=== PATIENT | female | born 1955 | race Caucasian/White ===

== ENCOUNTER 2020-01-18 08:37 | Outpatient (AMBR) | payer MEDICAID, SELFPAY ==
--- NOTE | 2020-01-18 14:07 | PT.ODS1RPT ---
PT OP Progress/Discharge Note Date of Service: 01/18/20 Progress Note/DC Note Progress Note/Discharge Note: DC Note Patient Information Visit Reasons: RIGHT KNEE POST OP Medical Diagnosis: Z47.1; Z96.651 Treatment Dx #1: Right Knee Mobility Deficits Treatment Dx #2: Right Knee Weakness Service Continue Service or Discharge: Discharge Discharge Date: 01/18/20 Status Subjective: Pt mention that she continues to have good and bad days. Pt stated that lately she's been having more knee pain on the outside but not consistent. Pt has been able to perform all ADLs, chores, self care, and ambulation with less limitation. Pt further mention that her other medical condition can play a role in her overall pain. Pt feels comfortable being release from physical therapy with exercises to continue at home. Objective: Right Knee AROM: -5 deg to 125 deg Right Knee MMTs Quads: 4/5 Hs: 4/5 Right Hip MMTs Glute Med: 4-/5 Glute Max: 4-/5 SLS: 8 sec sit-stand: 11 reps Modified CTSIB (condition 4): 30 sec Assessment: Pt's overall knee mobility, strength, and balance has improved allowing her to perform ADLs with less limitation. Pt continues to have intermittent knee pain leading to difficulty with certain activities. At this time Pt will no longer benefit from physical therapy due to plateau towards goals. Pt was instructed on HEP last session and educated to continue exercises to maintain overall mobility. Pt performed all exercises safely, thank you for your referrals. Plan: D/C home with HEP and follow up with MD [facility] Office Procedures PT Procedures PT Date of Service: 01/18/20 Therapeutic Activity 15 minutes: Yes Therapeutic Exercise 15 minutes: Yes
== END 2020-02-15 23:59 | disposition home or self-care (01) ==
PROVIDERS: PCP Orthopaedic Surgery; Referring Provider Orthopaedic Surgery; Visit Provider Orthopaedic Surgery
DX: Z47.1 Aftercare following joint replacement surgery (principal); Z96.651 Presence of right artificial knee joint; R53.1 Weakness; M25.561 Pain in right knee; R26.2 Difficulty in walking, not elsewhere classified; I10 Essential (primary) hypertension
CPT/HCPCS: 97110; 97530

== ENCOUNTER → 2024-07-19 | Outpatient (CLI) | payer OTHER, MEDICAID, SELFPAY ==
--- NOTE | 2024-07-19 13:45 | XR_ITS ---
Examination: Screening digital mammography, bilateral Computer aided detection 3-D breast Tomosynthesis, bilateral Date and time of exam: July 19, 2024 1359 hours Compared to mammograms dating to December 03, 2010 Indication: Screening Technique: Nonmagnified MLO, CC views of the breasts to been obtained, reconstructed from 3-D Tomosynthesis images. R2 computer aided detection program utilized for evaluation of suspicious masses and/or abnormal calcifications. 3-D Tomosynthesis images obtained. Findings: Scattered areas of fibroglandular density. Benign calcifications. No interval suspicious masses Impression: BI-RADS category II: Benign Findings. Recommend 1 year follow-up mammogram.
== END | disposition home or self-care (01) ==
PROVIDERS: PCP Physician Assistant; Referring Provider Physician Assistant; Visit Provider Physician Assistant
DX: Z12.31 Encounter for screening mammogram for malignant neoplasm of breast (principal); R92.323 Mammographic fibroglandular density, bilateral breasts; R92.1 Mammographic calcification found on diagnostic imaging of breast
CPT/HCPCS: 77063; 77067

== ENCOUNTER → 2025-04-05 | Outpatient (CLI) | payer OTHER, MEDICAID, SELFPAY ==
--- NOTE | 2025-04-05 13:51 | XR_ITS ---
Examination: Abdomen sonogram, complete Date and time of exam: April 05, 2025, 1404 hours INDICATIONS: Epigastric pain beginning 2 months ago. Technique: Multiple real-time grayscale transabdominal sonographic images of the abdomen have been obtained. Findings: Gallstones Gallbladder wall 0.3 cm no edema Common bile duct 0.5 cm Pancreatic head 2.8 cm Aorta not enlarged Liver 16.5 cm fatty infiltration Mild ascites Normal hepatopetal portal venous flow Patent IVC Right kidney 9.6 cm renal cortex 1.5 cm Left kidney 10.7 cm cortex 1.5 cm Spleen 11.3 cm IMPRESSION: Cholelithiasis, negative for cholecystitis Mild hepatomegaly Mild ascites
== END | disposition home or self-care (01) ==
LOC: CDIM 13:35
PROVIDERS: PCP Physician Assistant; Referring Provider Physician Assistant; Visit Provider Physician Assistant
DX: K80.20 Calculus of gallbladder without cholecystitis without obstruction (principal); R18.8 Other ascites; R16.0 Hepatomegaly, not elsewhere classified
CPT/HCPCS: 76700

== ENCOUNTER 2025-04-12 18:25 | Inpatient (IN) | payer OTHER, MEDICAID, MEDICARE, SELFPAY ==
[2025-04-12 18:27] VITALS: BMI 34.9
[2025-04-12 18:36] VITALS: BP 130/73; PULSE 98; RESP 18; TEMP 37.1; O2SAT 96
--- NOTE | 2025-04-12 19:13 | XR_ITS ---
Examination: CT abdomen with intravenous contrast CT pelvis with intravenous contrast 2-D coronal reconstructions 2-D sagittal reconstructions Date and time of exam: April 12, 20252013 hours INDICATIONS: Right upper abdominal pain today. CTDI: vol (mGy) 10.4 DLP: (mGycm) 544 Technique: Multiple axial sections of the abdomen and pelvis have been obtained. 64 slice high-resolution scanner used. 3 mm axial sections have been obtained, post intravenous injection 60 cc [id number] 2-D sagittal, coronal reconstructions obtained. Low dose protocols were performed. One or more of the following dose reduction techniques were used; automated exposure control, adjustment of the mA and/or KV according to patient size, use of iterative reconstruction technique. Findings: No focal liver lesions or biliary tract dilatation Gallstones, distended gallbladder Mild ascites Spleen is not enlarged Liver is mildly irregular in contour No pancreatic mass Minimal nodular thickening left adrenal gland Moderate renal scar formation a small portion of the appendix is visualized and is not enlarged No bowel obstruction Colonic diverticulosis Contracted urinary bladder with urinary bladder wall thickening Absent uterus No pelvic mass Severe osteopenia with advanced degenerative disc disease L4-L5, L5-S1 Advanced bilateral hip osteoarthritis IMPRESSION: Cirrhosis, mild ascites Cholelithiasis No common bile duct or common hepatic duct stones No bowel obstruction or CT findings of appendicitis Cystitis pattern
--- NOTE | 2025-04-12 19:13 | XR_ITS ---
Examination: Abdomen sonogram, Limited Date and time of exam: April 12, 2025, 1958 hours INDICATIONS: Right upper abdominal pain radiating to the back today Technique: Real-time phillips scale transabdominal sonographic images of the upper abdomen obtained. Findings: Multiple gallstones Normal gallbladder wall 0.3 cm Common bile duct 0.4 cm no stones Pancreas obscured by bowel gas Liver 17.7 cm lobular contour Normal hepatopetal portal venous flow Patent IVC IMPRESSION: Cholelithiasis, negative for cholecystitis Cirrhosis, moderate hepatomegaly, no focal liver lesions
--- NOTE | 2025-04-12 19:16 | PD.EDABDPN ---
ED Abdominal Pain RME/HPI General Chief Complaint: Abdominal Pain Stated complaint: RUQ PAIN HX GALLSTONES Time seen by provider: 04/12/25 19:12 Arrival date/time: 04/12/25 18:25 69F with history of HTN, DM, and anxiety presents to ED with worsening RUQ pain for 1 day, as well as some N/V. Patient has known gallstones and was supposed to get an outpatient referral to Dr. Parham. Patient denies dysuria. Limitations: no limitations Related Data Home Medications ?Medication ?Instructions ?Recorded ?Confirmed alprazolam 0.25 mg tablet (Xanax) 0.25 mg PO QDAY PRN Anxiety 07/08/19 10/08/20 atenolol 50 mg tablet (Tenormin) 50 mg PO QDAY 07/08/19 10/08/20 atorvastatin 40 mg tablet 40 mg PO QDAY 07/08/19 10/08/20 cimetidine 200 mg tablet (Tagamet 200 mg PO QID PRN Acid Reflux 07/08/19 10/08/20 HB) hydrochlorothiazide 25 mg tablet 25 mg PO QDAY 07/08/19 10/08/20 metformin 500 mg tablet 1,000 mg PO QDAY 06/14/20 10/08/20 hydrocodone 7.5 mg-acetaminophen 1 tab PO Q8H PRN Pain 09/13/20 10/08/20 325 mg tablet ibuprofen 600 mg tablet 600 mg PO Q6H PRN Pain 09/13/20 10/08/20 Allergies Allergy/AdvReac Type Severity Reaction Status Date / Time lisinopril Allergy Mild Cough Verified 10/08/20 13:02 Review of Systems Review of Systems Systems Reviewed: All systems reviewed, normal except as documented Gastrointestinal Gastrointestinal: Reports as per HPI, Reports abdominal pain, Reports nausea and Reports vomiting Past Medical History Past Medical History NEUROLOGIC: Negative Neurological Disorders, Cerebrovascular Accident, Meningitis, Seizures, Migraine or Head Trauma CARDIAC: Positive Cardiac Disorders, Hypercholesterolemia, Edema and Hypertension; Negative Congestive Heart Failure or Varicose Veins RESPIRATORY: Positive Asthma and Pneumonia; Negative Chronic Obstructive Pulmonary Disease (COPD) GASTROINTESTINAL: Positive Gastrointestinal Disorders, Gastroesophageal Reflux Disease (TAKES MEDS) and Obesity; Negative Hepatitis GENITOURINARY: Negative Genitourinary Disorders, Renal Disease or Kidney Stones REPRODUCTIVE: Positive Previous Pregnancies MUSCULOSKELETAL: Positive Musculoskeletal Disorders, Degenerative Disk Disease (TAKES PAIN MEDS) and Carpal Tunnel Syndrome (right); Negative Osteoporosis ENT: Negative Cataracts, Glaucoma or Head Trauma ENDOCRINE: Positive Diabetes Mellitus Type 2 (TAKES MEDS); Negative Endocrine Disorders or Diabetes Mellitus Type 1 HEMATOLOGIC: Negative Blood Disorders, Anemia or Leukemia PSYCHO/SOCIAL: Positive Bipolar Disorder and Anxiety (TAKE MEDS) OTHER HISTORY: Positive Hospitalization ([facility] 2019), Measles and Cancer; Negative Autoimmune Disease, Shingles, Falls, Blood Transfusions, Blood Transfusion Reaction, Anesthesia Reactions, Chemotherapy, Radiation Therapy, MRSA, Chicken Pox or Mumps Family History FAMILY HISTORY: Positive Family Cardiac Disorders (DAD-HTN, [place]) and Family Cancer; Negative Family Psychiatric Problems, Family Respiratory Disorders, Family Gastrointestinal Problems, Family Surgery or Family Anesthesia Reaction Surgical History SURGICAL: Positive Ear Surgery and Hysterectomy; Negative Cardiac Surgery, Pacemaker, Endocrine Surgery, Thyroidectomy, Abdominal Surgery, Nephrectomy, Neurologic Surgery or Brain Shunt Social History SMOKING STATUS: Current every day smoker ED Exam General Limitations: Present no limitations General appearance: Present alert and in no apparent distress Head Head exam: Present atraumatic Neck Neck exam: Present normal inspection, full ROM and trachea midline Chest Chest inspection: Present normal inspection and symmetric chest wall rise Abdominal Exam Abdominal exam: Present soft Abdominal tenderness: Present RUQ and severe Neurological Exam Neurological exam: Present alert and oriented X3 Psychiatric Psychiatric exam: Present normal affect and normal mood Skin Skin exam: Present warm, dry, intact and normal color Course Quality Measures none Orders Category Date Time Status Admit to Inpatient Status Routine Admission 04/13/25 00:25 Active Patient Condition Routine Admission 04/13/25 00:25 Ordered Activity as Tolerated Routine Care 04/13/25 00:25 Ordered COVID-19 Screening Questionnaire NOW Care 04/12/25 21:[address] Screening NOW Care 04/12/25 19:13 Active Decision to Admit X1 Care 04/12/25 21:30 Completed Insert IV NOW Care 04/12/25 19:13 Active Miscellaneous Nursing Order X1 Care 04/13/25 00:26 Active NPO NOW Care 04/12/25 19:42 Active Notify provider NEEDED Care 04/13/25 00:25 Active Obtain weight X1 Care 04/13/25 00:24 Active SCD [Sequential Compression Device] QSHIFT Care 04/13/25 00:24 Active Strict Intake and Output Routine Care 04/13/25 00:25 Ordered Consult to General Surgery Stat Cons 04/12/25 21:30 Ordered Diet NPO (NOW) Diet 04/12/25 19:[address] abdomen pelvis w con Stat Exams 04/12/25 19:13 Completed US gall bladder Stat Exams 04/12/25 19:13 Completed Bilirubin,Direct Stat Lab 04/12/25 23:48 Completed CBC AM DRAW Lab 04/13/25 05:00 Ordered CBC AM DRAW Lab 04/14/25 05:00 Ordered CBC AM DRAW Lab 04/15/25 05:00 Ordered CBC Stat Lab 04/12/25 19:20 Completed CBC Stat Lab 04/12/25 23:48 Completed CMP [Comprehensive Metabolic Panel] Stat Lab 04/12/25 19:20 Completed CMP [Comprehensive Metabolic Panel] Stat Lab 04/12/25 23:48 Completed Comprehensive Metabolic Panel AM DRAW Lab 04/13/25 05:00 Ordered Comprehensive Metabolic Panel AM DRAW Lab 04/14/25 05:00 Ordered Comprehensive Metabolic Panel AM DRAW Lab 04/15/25 05:00 Ordered Lipase Stat Lab 04/12/25 19:20 Completed Magnesium AM DRAW Lab 04/13/25 05:00 Ordered PTT [Partial Thromboplastin Time] AM DRAW Lab 04/13/25 05:00 Ordered Phosphorous AM DRAW Lab 04/13/25 05:00 Ordered Prothrombin Time with INR AM DRAW Lab 04/14/25 05:00 Ordered Acetaminophen Tab [Tylenol Tab] Med 04/13/25 00:24 Active 650 mg PO Q6HR PRN HYDROmorphone INJ [Dilaudid Inj] Med 04/13/25 00:24 Active 1 mg IVP Q4H PRN HYDROmorphone INJ [Dilaudid Inj] Med 04/12/25 20:22 Discontinued 1 mg IVP X1 ONE HYDROmorphone INJ [Dilaudid Inj] Med 04/12/25 23:30 Discontinued 1 mg IVP X1 ONE Morphine* Inj Med 04/12/25 19:13 Discontinued 4 mg IV X1 ONE Ondansetron Inj [Zofran Inj] Med 04/12/25 19:13 Discontinued 4 mg IVP X1 ONE Ringers Lactated 1000 ml [Lactated Ringers] 1,000 ml Med 04/12/25 20:22 Discontinued IV 999 mls/hr Sodium Chloride 0.9% 1000 ml [Ns] 1,000 ml Med 04/12/25 23:42 Active IV 100 mls/hr Sodium Chloride 0.9% 1000 ml [Ns] 1,000 ml Med 04/12/25 19:53 Discontinued IV 999 mls/hr ceFAZolin/D5W 2 GM IV [Ancef 2gm Ivpb] Med 04/12/25 21:30 Discontinued 2 gm in 100 ml IV X1 Code Status Routine Oth 04/13/25 00:24 Ordered Oxygen Delivery PRN RT 04/13/25 00:24 Active Vital Signs Vital signs: Vital Signs Temperature 98.7 F 04/12/25 18:36 Pulse Rate 98 04/12/25 18:36 Respiratory Rate 18 04/12/25 18:36 Blood Pressure 130/73 04/12/25 18:36 Pulse Oximetry (%) 96 04/12/25 18:36 Oxygen Delivery Method Room Air 04/12/25 18:36 O2 at 96% on RA and WNLs Abdominal Pain MDM MDM Narrative MDM Narrative:: 69F with history of HTN, DM, and anxiety presents to ED with worsening RUQ pain for 1 day, as well as some N/V. Patient has known gallstones and was supposed to get an outpatient referral to Dr. Parham. Patient denies dysuria. Physical exam reveals very tender RUQ area. Patient is afebrile, alert, but appears to be in pain. Leukocytosis of 17k. CMP unremarkable except for mildly low Na. Lipase normal. US gallstones. CT gallstones. Spoke to Dr. Parham, gen surgeon, who will consult. He recommends Ancef. Spoke to IM Resident who reports to Dr. Gomez, who will admit. Patient data External records reviewed:: [facility] previous records Clinical information provided by:: patient Social determinants that could affect healthcare access:: mental health Patient has the following chronic illnesses:: HTN, DM, and anxiety How is presenting disease/condition affected by chronic disease/condition?: exacerbated by Evaluation data The following diagnostics were reviewed and interpreted by me:: lab results and radiology exam(s) Lab and/or radiology exams considered but not ordered:: ordered Interpretation Summary: above Medications / Prescriptions Medications or Prescriptions considered but not ordered:: ordered Medication administrations:: Medication Administration History Acetaminophen (Acetaminophen 325 Mg Tablet) 650 mg PO Q6HR PRN PRN Reason: PAIN (1-3) OR FEVER > 100.4 Stop: 05/13/25 00:23 Hydromorphone HCl (Hydromorphone Inj 2 Mg/Ml Vial) 1 mg IVP Q4H PRN PRN Reason: Severe Pain (7-10) Stop: 04/18/25 00:23 Sodium Chloride (Ns) 1,000 mls @ 100 mls/hr IV .Q10H ONE Stop: 04/13/25 09:41 Last Admin: 04/12/25 23:48 Dose: 100 mls/hr Documented By: CHRISTIE Discontinued Medications Hydromorphone HCl (Hydromorphone Inj 2 Mg/Ml Vial) 1 mg IVP X1 ONE Stop: 04/12/25 20:23 Last Admin: 04/12/25 21:00 Dose: 1 mg Documented By: CHRISTIE Hydromorphone HCl (Hydromorphone Inj 2 Mg/Ml Vial) 1 mg IVP X1 ONE Stop: 04/12/25 23:31 Last Admin: 04/12/25 23:48 Dose: 1 mg Documented By: CHRISTIE Sodium Chloride (Ns) 1,000 mls @ 999 mls/hr IV .Q1H1M ONE Stop: 04/12/25 20:53 Last Infusion: 04/12/25 22:12 Dose: Infused Documented By: Admin: 04/12/25 20:56 Dose: 999 mls/hr Documented By: CHRISTIE Lactated Ringer's (Lactated Ringers) 1,000 mls @ 999 mls/hr IV .Q1H1M ONE Stop: 04/12/25 21:22 Last Infusion: 04/12/25 22:11 Dose: Infused Documented By: Admin: 04/12/25 21:00 Dose: 999 mls/hr Documented By: CHRISTIE Cefazolin Sodium (Ancef 2gm Ivpb) 2 gm in 100 mls @ 200 mls/hr IV X1 ONE Stop: 04/12/25 21:59 Last Infusion: 04/12/25 22:22 Dose: Infused Documented By: Admin: 04/12/25 21:49 Dose: 200 mls/hr Documented By: CHRISTIE Morphine Sulfate (Morphine Sulf Inj 4 Mg/Ml Vial) 4 mg IV X1 ONE Stop: 04/12/25 19:14 Last Admin: 04/12/25 19:47 Dose: 4 mg Documented By: CHRISTIE Ondansetron HCl (Ondansetron Inj 2 Mg/Ml Inj 2 Ml) 4 mg IVP X1 ONE; Protocol Stop: 04/12/25 19:14 Last Admin: 04/12/25 19:47 Dose: 4 mg Documented By: SM above Consultations Consultation(s) initiated? (list below): Yes Diagnosis Differential diagnosis abdominal pain: abdominal pain, acute appendicitis, calculus of kidney, constipation, diverticulitis, gastroenteritis, pancreatitis and small bowel obstruction Most likely diagnosis given after review of the tests above:: gallstones Admission Indicated Admission indicated?: indicated Admission Request Was there a request for admission?: Yes Admission Attestation Admission request attestation: Discussed case with [Dr. Gomez] from Hospitalist service regarding admission. Discussed patients ED course, exam findings, labs, and radiology results. The Hospitalist [agrees] to accept the patient for admission. Disposition Plan Disposition Plan: Admit Discharge Plan Plan Patient Disposition: Admit Acute Care w/in Hospital Prescriptions/Referrals Prescriptions/Med Rec: No Action metformin 500 mg Tablet 1,000 mg PO QDAY hydrocodone-acetaminophen 7.5-325 mg Tablet 1 tab PO Q8H PRN (Reason: Pain) ibuprofen 600 mg Tablet 600 mg PO Q6H PRN (Reason: Pain) atorvastatin 40 mg Tablet 40 mg PO QDAY alprazolam [Xanax] 0.25 mg Tablet 0.25 mg PO QDAY PRN (Reason: Anxiety) cimetidine [Tagamet HB] 200 mg Tablet 200 mg PO QID PRN (Reason: Acid Reflux) hydrochlorothiazide 25 mg Tablet 25 mg PO QDAY atenolol [Tenormin] 50 mg Tablet 50 mg PO QDAY Referrals: Rosa Ku PA-C [Primary Care Provider, Family Practice] - In 1 week Problem List Clinical Impression: Gallstones Patient/Caregiver Discharge Instructions Print Language: Israeli Stand Alone Forms: Rosalba Award Info., Patient Portal Info Letter
[2025-04-12 19:26] LABS: Basophils # (Auto) 0.1 Thou/mm3 (0.0-0.2); Basophils % (Auto) 0 % (0-2.5); Eosinophils # (Auto) 0.0 Thou/mm3 (0.0-0.5); Eosinophils % (Auto) 0 % (0-10); Hematocrit 36.0 % (36.0-46.0); Hemoglobin 13.0 g/dL (12.0-16.0); Immature Granulocytes Auto 0.10 Thou/mm3 (0.00-0.00); Lymphocytes # (Auto) 0.7 Thou/mm3 (1.0-4.8); Lymphocytes % (Auto) 4 % (10-50); Mean Corpuscular HGB Conc 36.1 g/dl (31.0-37.0); Mean Corpuscular Hemoglobin 31.0 pg (25.0-35.0); Mean Corpuscular Volume 86 fL (80-100); Monocytes # (Auto) 0.8 Thou/mm3 (0.0-0.8); Monocytes % (Auto) 5 % (0-12); Neutrophils # (Auto) 15.9 Thou/mm3 (1.8-7.7); Neutrophils % (Auto) 90 % (37-80); Nucleated Red Blood Cell # 0.00 Thou/mm3 (0.00-0.00); Nucleated Red Blood Cell % 0 /100 WBC (0); Platelet Count 265 Thou/mm3 (140-440); RDW Standard Deviation 39.0 fL (36.4-46.3); Red Blood Count 4.19 Miln/mm3 (4.00-5.20); White Blood Count 17.6 Thou/mm3 (3.6-11.0)
[2025-04-12] MEDS: ONDANSETRON INJ 2 MG/ML INJ 2 ML 4 MG IVP (19:47)
[2025-04-12] MEDS: MORPHINE SULF INJ 4 MG/ML VIAL IV (19:47)
[2025-04-12 19:50] LABS: Alanine Aminotransferase 8 U/L (10-49); Albumin, Serum 4.9 gm/dL (3.4-4.8); Albumin/Globulin Ratio 2.7 (1.2-2.2); Alkaline Phosphatase 141 U/L (46-116); Anion Gap 11 (7-16); Aspartate Amino Transferase 15 U/L (0-34); BUN/Creatinine Ratio 13 Ratio (12-20); Bilirubin,Total 0.7 mg/dL (0.3-1.2); Blood Urea Nitrogen 12 mg/dL (9-23); Calcium 10.0 mg/dL (8.3-10.6); Calcium (Corrected) 10.0 mg/dL (8.5-10.1); Carbon Dioxide 25.4 mMol/L (20.0-31.0); Chloride 96 mMol/L (98-107); Creatinine (Component) 0.9 mg/dL (0.6-1.3); Estimated Creatinine Clearance 56.5 mL/min (>60); Globulin 1.8 gm/dL (2.3-3.5); Glucose 150 mg/dL (74-106); Lipase 23 U/L (12-53); Osmolality,Calculated 267 (275-295); Potassium 3.5 mMol/L (3.4-5.1); Sodium 132 mMol/L (136-145); Total Protein 6.7 gm/dL (5.7-8.2); eGFR > 60 See Note
[2025-04-12 20:45] VITALS: BP 91/44; PULSE 86; RESP 19; TEMP 37.1; O2SAT 96
[2025-04-12] MEDS: SODIUM CHLORIDE 0.9% 1000 ML 1,000 ML 999 ML IV (20:56)
[2025-04-12] MEDS: HYDROmorphone INJ 2 MG/ML VIAL 1 MG IVP ×2 (21:00→23:48)
[2025-04-12] MEDS: RINGERS LACTATED 1000 ML 1,000 ML 999 ML IV (21:00)
[2025-04-12] MEDS: ceFAZolin/D5W 2 GM IV 2 GM/100 ML BAG IV (21:49)
[2025-04-12] MEDS: SODIUM CHLORIDE 0.9% 1000 ML 1,000 ML 100 ML IV (23:48)
[2025-04-12 23:54] LABS: Basophils # (Auto) 0.0 Thou/mm3 (0.0-0.2); Basophils % (Auto) 0 % (0-2.5); Eosinophils # (Auto) 0.0 Thou/mm3 (0.0-0.5); Eosinophils % (Auto) 0 % (0-10); Hematocrit 30.4 % (36.0-46.0); Hemoglobin 11.0 g/dL (12.0-16.0); Immature Granulocytes Auto 0.06 Thou/mm3 (0.00-0.00); Lymphocytes # (Auto) 0.7 Thou/mm3 (1.0-4.8); Lymphocytes % (Auto) 5 % (10-50); Mean Corpuscular HGB Conc 36.2 g/dl (31.0-37.0); Mean Corpuscular Hemoglobin 31.3 pg (25.0-35.0); Mean Corpuscular Volume 87 fL (80-100); Monocytes # (Auto) 0.7 Thou/mm3 (0.0-0.8); Monocytes % (Auto) 4 % (0-12); Neutrophils # (Auto) 14.7 Thou/mm3 (1.8-7.7); Neutrophils % (Auto) 91 % (37-80); Nucleated Red Blood Cell # 0.00 Thou/mm3 (0.00-0.00); Nucleated Red Blood Cell % 0 /100 WBC (0); Platelet Count 240 Thou/mm3 (140-440); RDW Standard Deviation 39.5 fL (36.4-46.3); Red Blood Count 3.51 Miln/mm3 (4.00-5.20); White Blood Count 16.2 Thou/mm3 (3.6-11.0)
[2025-04-13] VITALS (17 sets, daily range): BP systolic 91–141; BP diastolic 42–88; PULSE 82–110; RESP 16–95; TEMP 35.9–36.7; O2SAT 92–98; BMI 35.6
[2025-04-13 00:27] LABS: Alanine Aminotransferase < 7 U/L (10-49); Albumin, Serum 4.2 gm/dL (3.4-4.8); Albumin/Globulin Ratio 2.5 (1.2-2.2); Alkaline Phosphatase 112 U/L (46-116); Anion Gap 9 (7-16); Aspartate Amino Transferase 13 U/L (0-34); BUN/Creatinine Ratio 13 Ratio (12-20); Bilirubin,Direct 0.2 mg/dL (0.0-0.3); Bilirubin,Total 0.4 mg/dL (0.3-1.2); Blood Urea Nitrogen 10 mg/dL (9-23); Calcium 8.7 mg/dL (8.3-10.6); Calcium (Corrected) 8.7 mg/dL (8.5-10.1); Carbon Dioxide 25.3 mMol/L (20.0-31.0); Chloride 101 mMol/L (98-107); Creatinine (Component) 0.8 mg/dL (0.6-1.3); Estimated Creatinine Clearance 63.5 mL/min (>60); Globulin 1.7 gm/dL (2.3-3.5); Glucose 151 mg/dL (74-106); Osmolality,Calculated 272 (275-295); Potassium 3.2 mMol/L (3.4-5.1); Sodium 135 mMol/L (136-145); Total Protein 5.9 gm/dL (5.7-8.2); eGFR > 60 See Note
--- NOTE | 2025-04-13 00:29 | PD.RESHP ---
Documentation for date of: 04/13/25 [facility] History of Present Illness History of present illness: 69-year-old female with a history of hypertension, type II diabetes mellitus, and anxiety presents to the emergency department with a 1-day history of worsening RUQ abdominal pain, associated with nausea and vomiting (2 episodes). The pain is described as constant, dull, and localized to the RUQ, and has progressively worsened over the past day. The patient reports a known history of gallstones and was waiting on an outpatient referral to Dr. Parham for follow-up, but has not yet been seen. She denies any dysuria, fever, or chills. The patient?s symptoms do not appear to be related to any recent change in diet or medication. There is no history of jaundice, and she denies any recent weight loss or dark/foul-smelling urine. ED course: Initial vitals include T98.7, BP 130/73, HR 98, RR 18, O2 sat 96% room air. Notable labs include WBC 17.6, hemoglobin 13, sodium 132 with repeat 135, potassium 3.2. Past medical history: As stated above. Past surgical history: Carpal tunnel and shoulder surgeries, no abdominal surgeries. Allergies: Lisinopril (cough). Family history: Noncontributory. Social history: No alcohol use, smokes 1.5 packs a day for 30 years, no illicit drug use. Patient admitted for cholelithiasis pending cholecystectomy. Review of Systems Review of Systems Narrative Review of Systems: All systems reviewed negative unless stated otherwise above. Exam Vital Signs Temp Pulse Resp BP Pulse Ox O2 Del Method 98.7 F 86 19 91/44 L 96 Room Air 04/12/25 20:45 04/12/25 20:45 04/12/25 20:45 04/12/25 20:45 04/12/25 20:45 04/12/25 20:45 Narrative Exam General: AOx3, severe distress from pain HEENT: NC/AT, mucous membranes moist, bilateral sclera anicteric Cardiovascular: regular rate and rhythm, S1/S2 present, no murmurs appreciated Pulmonary: clear to auscultation bilaterally, no rales/rhonchi/wheezes Abdominal: Tense, severe tenderness with minimal palpation, distended, involuntary guarding, normal bowel sounds present Musculoskeletal: normal ROM, no peripheral edema Skin: warm and dry, intact, no rashes, Neuro: CN II-XII intact, no focal deficits Results: Labs 04/13/25 05:04 04/13/25 05:04 Labs: Short CBC 04/12/25 04/12/25 Range/Units 19:20 23:48 WBC 17.6 H 16.2 H (3.6-11.0) Thou/mm3 Hgb 13.0 11.0 L D (12.0-16.0) g/dL Hct 36.0 30.4 L (36.0-46.0) % Plt Count 265 240 (140-440) Thou/mm3 BMP 04/12/25 19:20 Sodium 132 L Potassium 3.5 Chloride 96 L Carbon Dioxide 25.4 BUN 12 Creatinine 0.9 Glucose 150 H Calcium 10.0 Liver Function 04/12/25 Range/Units 19:20 Total Bilirubin 0.7 (0.3-1.2) mg/dL AST 15 (0-34) U/L ALT 8 L (10-49) U/L Alkaline Phosphatase 141 H (46-116) U/L Albumin 4.9 H (3.4-4.8) gm/dL Quality Measures Quality Measures VTE prophylaxis Advance care planning discussed with:: patient Medications Home Medications and Allergies Home Medications ?Medication ?Instructions ?Recorded ?Confirmed ?Type atenolol 50 mg tablet (Tenormin) 50 mg PO QDAY 07/08/19 04/13/25 History atorvastatin 40 mg tablet 40 mg PO QDAY 07/08/19 04/13/25 History hydrochlorothiazide 25 mg tablet 25 mg PO QDAY 07/08/19 04/13/25 History metformin 500 mg tablet 1,000 mg PO QDAY 06/14/20 04/13/25 History hydrocodone 7.5 mg-acetaminophen 1 tab PO Q8H PRN Pain 09/13/20 04/13/25 History 325 mg tablet famotidine 20 mg tablet 20 mg PO QDAY 04/13/25 04/13/25 History gabapentin 300 mg capsule 300 mg PO TID Nerve pain in my 04/13/25 04/13/25 History hands losartan 50 mg tablet 50 mg PO QDAY 04/13/25 04/13/25 History omeprazole 20 mg capsule,delayed 20 mg PO QDAY 04/13/25 04/13/25 History release Allergies Allergy/AdvReac Type Severity Reaction Status Date / Time lisinopril Allergy Mild Cough Verified 10/08/20 13:02 Visit Medications Acetaminophen (Acetaminophen 325 Mg Tablet) 650 mg PO Q6HR PRN PRN Reason: PAIN (1-3) OR FEVER > 100.4 Stop: 05/13/25 00:23 Hydromorphone HCl (Hydromorphone Inj 2 Mg/Ml Vial) 1 mg IVP Q4H PRN PRN Reason: Severe Pain (7-10) Stop: 04/18/25 00:23 Sodium Chloride (Ns) 1,000 mls @ 100 mls/hr IV .Q10H ONE Stop: 04/13/25 09:41 Last Admin: 04/12/25 23:48 Dose: 100 mls/hr Discontinued Medications Hydromorphone HCl (Hydromorphone Inj 2 Mg/Ml Vial) 1 mg IVP X1 ONE Stop: 04/12/25 20:23 Last Admin: 04/12/25 21:00 Dose: 1 mg Hydromorphone HCl (Hydromorphone Inj 2 Mg/Ml Vial) 1 mg IVP X1 ONE Stop: 04/12/25 23:31 Last Admin: 04/12/25 23:48 Dose: 1 mg Sodium Chloride (Ns) 1,000 mls @ 999 mls/hr IV .Q1H1M ONE Stop: 04/12/25 20:53 Last Infusion: 04/12/25 22:12 Dose: Infused Lactated Ringer's (Lactated Ringers) 1,000 mls @ 999 mls/hr IV .Q1H1M ONE Stop: 04/12/25 21:22 Last Infusion: 04/12/25 22:11 Dose: Infused Cefazolin Sodium (Ancef 2gm Ivpb) 2 gm in 100 mls @ 200 mls/hr IV X1 ONE Stop: 04/12/25 21:59 Last Infusion: 04/12/25 22:22 Dose: Infused Morphine Sulfate (Morphine Sulf Inj 4 Mg/Ml Vial) 4 mg IV X1 ONE Stop: 04/12/25 19:14 Last Admin: 04/12/25 19:47 Dose: 4 mg Ondansetron HCl (Ondansetron Inj 2 Mg/Ml Inj 2 Ml) 4 mg IVP X1 ONE; Protocol Stop: 04/12/25 19:14 Last Admin: 04/12/25 19:47 Dose: 4 mg Assessment & Plan Plan 69-year-old female with a history of hypertension, type II diabetes mellitus, and anxiety presents to the emergency department with a 1-day history of worsening RUQ abdominal pain, associated with nausea and vomiting. Patient admitted for cholelithiasis pending cholecystectomy. #Cholelithiasis #Right upper quadrant pain #Intractable abdominal pain #Liver Cirrhosis 1-day history of worsening RUQ abdominal pain, associated with nausea and vomiting CT Abdo pelvis showed cholelithiasis, liver mildly irregular in contour, no common bile duct or common hepatic duct stone, no bowel obstruction Gallbladder ultrasound showed cholelithiasis, negative for cholecystitis WBC 17.6 Afebrile Plan ? General Surgery consulted, Dr. Parham, to evaluate in the morning ? N.p.o. ? Analgesia ? Maintenance fluid ? No indication for antibiotics at this stage #Hypokalemia Likely in the setting of GI loss Plan ? Replete potassium ? Follow level in a.m. #Type 2 diabetes mellitus Last A1c unknown Takes metformin 1 g daily Plan ? Insulin sliding scale ordered ? Hypoglycemia protocol in place ? A1c level ordered Health Maintenance: Diet: N.p.o. GI prophylaxis: Protonix 40 mg daily DVT prophylaxis: SCDs given surgery in the morning Antibiotics: None CODE STATUS: Full Disposition: MedSur Case discussed with my attending Dr. Gomez, and senior resident, Dr. Jaquelin Odom MD PGY-1 Attending Provider Attestation/Addendum After examination of the patient and review of the clinical data I feel that this patient needs admission to the hospital for further treatment/evaluation. Plan of care discussed with patient and is in agreement. I Renate Gomez MD, attest that I was physically present for valles portions of evaluation, and examined patient, labs and imagings and plan of care were discussed with IM residents team, and I agree with the findings and plans documented above.
[2025-04-13] MEDS: POTASSIUM CHL 10 mEq IVPB 10 MEQ/100 ML BAG 75 MEQ IV ×4 (02:28→06:15)
[2025-04-13] MEDS: HYDROmorphone INJ 2 MG/ML VIAL 1 MG IVP ×3 (03:15→10:10)
--- NOTE | 2025-04-13 03:22 | PC.NURSE ---
Accessed pt's chart to give Dilaudid 1 mg. Main RN on lunch.
--- NOTE | 2025-04-13 05:20 | PC.NURSE ---
MD Parham called and get update for the pts.
[2025-04-13 05:26] LABS: Basophils # (Auto) 0.1 Thou/mm3 (0.0-0.2); Basophils % (Auto) 0 % (0-2.5); Eosinophils # (Auto) 0.0 Thou/mm3 (0.0-0.5); Eosinophils % (Auto) 0 % (0-10); Hematocrit 31.3 % (36.0-46.0); Hemoglobin 10.9 g/dL (12.0-16.0); Immature Granulocytes Auto 0.09 Thou/mm3 (0.00-0.00); Lymphocytes # (Auto) 0.9 Thou/mm3 (1.0-4.8); Lymphocytes % (Auto) 5 % (10-50); Mean Corpuscular HGB Conc 34.8 g/dl (31.0-37.0); Mean Corpuscular Hemoglobin 30.4 pg (25.0-35.0); Mean Corpuscular Volume 87 fL (80-100); Monocytes # (Auto) 0.9 Thou/mm3 (0.0-0.8); Monocytes % (Auto) 5 % (0-12); Neutrophils # (Auto) 16.5 Thou/mm3 (1.8-7.7); Neutrophils % (Auto) 89 % (37-80); Nucleated Red Blood Cell # 0.00 Thou/mm3 (0.00-0.00); Nucleated Red Blood Cell % 0 /100 WBC (0); Platelet Count 244 Thou/mm3 (140-440); RDW Standard Deviation 40.0 fL (36.4-46.3); Red Blood Count 3.59 Miln/mm3 (4.00-5.20); White Blood Count 18.5 Thou/mm3 (3.6-11.0)
[2025-04-13 05:39] LABS: Partial Thromboplastin Time 28.7 Seconds (22.0-36.0)
[2025-04-13 05:45] LABS: Glucose Estimated Average 137 mg/dL (80-131); Hemoglobin A1C 6.4 % Hgb (4.8-6.0)
[2025-04-13 06:03] LABS: Alanine Aminotransferase < 7 U/L (10-49); Albumin, Serum 4.4 gm/dL (3.4-4.8); Albumin/Globulin Ratio 2.6 (1.2-2.2); Alkaline Phosphatase 110 U/L (46-116); Anion Gap 7 (7-16); Aspartate Amino Transferase 12 U/L (0-34); BUN/Creatinine Ratio 14 Ratio (12-20); Bilirubin,Total 0.5 mg/dL (0.3-1.2); Blood Urea Nitrogen 11 mg/dL (9-23); Calcium 8.9 mg/dL (8.3-10.6); Calcium (Corrected) 8.9 mg/dL (8.5-10.1); Carbon Dioxide 25.9 mMol/L (20.0-31.0); Chloride 103 mMol/L (98-107); Creatinine (Component) 0.8 mg/dL (0.6-1.3); Estimated Creatinine Clearance 64.1 mL/min (>60); Globulin 1.7 gm/dL (2.3-3.5); Glucose 131 mg/dL (74-106); Magnesium 1.5 mg/dL (1.6-2.6); Osmolality,Calculated 273 (275-295); Phosphorous 3.6 mg/dL (2.4-5.1); Potassium 4.0 mMol/L (3.4-5.1); Sodium 136 mMol/L (136-145); Total Protein 6.1 gm/dL (5.7-8.2); eGFR > 60 See Note
--- NOTE | 2025-04-13 06:36 | PC.NURSE ---
MD Hammer made aware that pt is still in too much pain, per MD will check on pts chart.
--- NOTE | 2025-04-13 07:07 | PD.SURCONS ---
HPI Consult details Consult date: 04/13/25 Reason for consultation narrative: ` The patient is admitted with a diagnosis of cholelithiasis History of present illness: History of present illness revealed that the patient has been experiencing some pain over the right side of the abdomen under the rib cage for a few months. She was seen by Rosa at [facility] and was ordered to have an ultrasound 1 week ago. Patient was found to have gallstones and she was waiting for the referral to mt for surgery. But starting yesterday she had uncontrolled severe pain over the right flank and came to the emergency room and was found to have significant tenderness. She was admitted to the hospital and a CT scan showed some fluid in the liver and gallstones. The ultrasound confirmed the gallstones. Patient's pain is very severe accompanied by exacerbation. She cannot even move and is planning to lie down on the left side and she cannot lie down on the right side. She has had some back pain in the past. Her other medical problem consist of diabetes and hypertension past surgery consisted of knee replacement and carpal tunnel. Patient is also taking gabapentin for her nerve pain in her hands and legs Past Medical History Past Medical History NEUROLOGIC: Negative Neurological Disorders, Cerebrovascular Accident, Meningitis, Seizures, Migraine or Head Trauma CARDIAC: Positive Cardiac Disorders, Hypercholesterolemia, Edema and Hypertension; Negative Congestive Heart Failure or Varicose Veins RESPIRATORY: Positive Asthma and Pneumonia; Negative Chronic Obstructive Pulmonary Disease (COPD) GASTROINTESTINAL: Positive Gastrointestinal Disorders, Gastroesophageal Reflux Disease and Obesity; Negative Hepatitis GENITOURINARY: Negative Genitourinary Disorders, Renal Disease or Kidney Stones REPRODUCTIVE: Positive Previous Pregnancies MUSCULOSKELETAL: Positive Musculoskeletal Disorders, Degenerative Disk Disease and Carpal Tunnel Syndrome; Negative Osteoporosis ENT: Negative Cataracts, Glaucoma or Head Trauma ENDOCRINE: Positive Diabetes Mellitus Type 2; Negative Endocrine Disorders or Diabetes Mellitus Type 1 HEMATOLOGIC: Negative Blood Disorders, Anemia, Leukemia or Sickle Cell Disease PSYCHO/SOCIAL: Positive Bipolar Disorder and Anxiety OTHER HISTORY: Positive Hospitalization, Measles and Cancer; Negative Autoimmune Disease, Shingles, Falls, Blood Transfusions, Blood Transfusion Reaction, Anesthesia Reactions, Chemotherapy, Radiation Therapy, MRSA, Chicken Pox or Mumps Family History FAMILY HISTORY: Positive Family Cardiac Disorders and Family Cancer; Negative Family Psychiatric Problems, Family Respiratory Disorders, Family Gastrointestinal Problems, Family Surgery or Family Anesthesia Reaction Surgical History SURGICAL: Positive Ear Surgery and Hysterectomy; Negative Cardiac Surgery, Pacemaker, Endocrine Surgery, Thyroidectomy, Abdominal Surgery, Nephrectomy, Neurologic Surgery or Brain Shunt Social History SMOKING STATUS: Current every day smoker Meds Home Medications and Allergies Home Medications ?Medication ?Instructions ?Recorded ?Confirmed ?Type atenolol 50 mg tablet (Tenormin) 50 mg PO QDAY 07/08/19 04/13/25 History atorvastatin 40 mg tablet 40 mg PO QDAY 07/08/19 04/13/25 History hydrochlorothiazide 25 mg tablet 25 mg PO QDAY 07/08/19 04/13/25 History metformin 500 mg tablet 1,000 mg PO QDAY 06/14/20 04/13/25 History hydrocodone 7.5 mg-acetaminophen 1 tab PO Q8H PRN Pain 09/13/20 04/13/25 History 325 mg tablet famotidine 20 mg tablet 20 mg PO QDAY 04/13/25 04/13/25 History gabapentin 300 mg capsule 300 mg PO TID Nerve pain in my 04/13/25 04/13/25 History hands losartan 50 mg tablet 50 mg PO QDAY 04/13/25 04/13/25 History omeprazole 20 mg capsule,delayed 20 mg PO QDAY 04/13/25 04/13/25 History release Allergies Allergy/AdvReac Type Severity Reaction Status Date / Time lisinopril Allergy Mild Cough Verified 10/08/20 13:02 Exam Vital Signs Temp Pulse Resp BP Pulse Ox O2 Del Method 96.9 F 87 18 126/65 96 Room Air 04/13/25 04:00 04/13/25 04:00 04/13/25 04:00 04/13/25 04:00 04/13/25 04:00 04/13/25 04:00 Narrative Exam Physical examination revealed a an obese female who is 5 feet tall weighing 182 pounds with a BMI of 35.6. Her vital signs are normal Constitutional Constitutional: severe distress Routine Respiratory Exam Comments: Normal Routine Cardiovascular Exam Comments: Sinus rhythm Routine Abdominal Exam Comments: Examination of the abdomen showed severe tenderness over the right flank and the right side of the abdomen. The left side of the abdomen is soft and bowel sounds are hypoactive. Patient's pain and tenderness is on proportion to the findings on the CT scan Routine Rectal Exam Comments: Deferred Routine Exam Comments: Deferred Routine Extremities Exam Comments: Within normal limits Routine Back/Spine/Pelvis Exam Comments: Patient has a tenderness over the back and over the right flank likely radicular pain Results Results: Laboratory Laboratory Narrative: Laboratory workup shows leukocytosis around 18,000. Liver enzymes are normal Results: Imaging Imaging narrative: CT scan of the abdomen showed some fluid around the liver and possible cirrhosis but I do not see any contraction of the liver. Gallbladder is seen with 2 stones but there are no Christopher cholecystic fluid collection or distention of the gallbladder. The ultrasound of the abdomen showed cholelithiasis without cholecystitis Assessment & Plan Additional Assessment Additional comments: Impression: Questionable radicular pain Cholelithiasis Obesity Hypertension Diabetes Plan Plan: Patient's pain is not typical of acute cholecystitis she is having constant pain requiring [id number] Dilaudid. It seems to be not relieving her pain. At this time I have not made a diagnosis as to what is causing this pain and the gallstones were just an incidental finding and may be an innocent bystander. I can always arrange for a laparoscopic cholecystectomy which needs to be done but this will not relieve pain I would wait for further diagnostic workup. Thank you
--- NOTE | 2025-04-13 07:28 | PD.RESPRO ---
Documentation for date of: 04/13/25 Subjective Subjective Interval history: patient seen and examined at bedside daughter and son present. concerned for GB infection pt is pending UA to help rule out UTI and possible renal stone, evne though ct without renal stone present. she has known cholelithiasis but imaging on this admission without signs of acute cholecystitis continue with pain management Exam Vital Signs Temp Pulse Resp BP Pulse Ox O2 Del Method 96.9 F 87 18 126/65 96 Room Air 04/13/25 04:00 04/13/25 04:00 04/13/25 04:00 04/13/25 04:00 04/13/25 04:00 04/13/25 04:00 Narrative Exam General: AOx3, severe distress from pain, standing at bedside bent over, holding on to bed railing. HEENT: NC/AT, mucous membranes moist, bilateral sclera anicteric Cardiovascular: regular rate and rhythm, S1/S2 present, no murmurs appreciated Pulmonary: clear to auscultation bilaterally, no rales/rhonchi/wheezes Abdominal: Abdomen is firm, no rebound no guardings, some epigastric tenderness to palpation, no guarding upon deep palpation of the RUQ, normal bowel sounds. Musculoskeletal: normal ROM, no peripheral edema Skin: warm and dry, intact, no rashes, Neuro: CN II-XII intact, no focal deficits Objective Labs 04/13/25 05:04 04/13/25 05:04 Labs: Laboratory Results - last 24 hr 04/12/25 04/12/25 04/13/25 19:20 23:48 05:04 WBC 17.6 H 16.2 H 18.5 H RBC 4.19 3.51 L 3.59 L Hgb 13.0 11.0 L D 10.9 L Hct 36.0 30.4 L 31.3 L MCV 86 87 87 MCH 31.0 31.3 30.4 MCHC 36.1 36.2 34.8 RDW Std Deviation 39.0 39.5 40.0 Plt Count 265 240 244 Neut % (Auto) 90 H 91 H 89 H Lymph % (Auto) 4 L 5 L 5 L Charlton % (Auto) 5 4 5 Eos % (Auto) 0 0 0 Baso % (Auto) 0 0 0 Neut # (Auto) 15.9 H 14.7 H 16.5 H Lymph # (Auto) 0.7 L 0.7 L 0.9 L Charlton # (Auto) 0.8 0.7 0.9 H Eos # (Auto) 0.0 0.0 0.0 Baso # (Auto) 0.1 0.0 0.1 Immature Gran # (Auto) 0.10 H 0.06 H 0.09 H Absolute Nucleated RBC 0.00 0.00 0.00 Immature Gran % 1 H 0 1 H Nucleated RBC % 0 0 0 APTT 28.7 Sodium 132 L 135 L 136 Potassium 3.5 3.2 L 4.0 D Chloride 96 L 101 103 Carbon Dioxide 25.4 25.3 25.9 Anion Gap 11 9 7 BUN 12 10 11 Creatinine 0.9 0.8 0.8 Estim Creat Clear Calc 56.5 L 63.5 64.1 eGFR > 60 > 60 > 60 BUN/Creatinine Ratio 13 13 14 Glucose 150 H [address] Glu mg/dL 137 H Hemoglobin A1c 6.4 H Calculated Osmolality 267 L 272 L 273 L Calcium 10.0 8.7 8.9 Corrected Calcium 10.0 8.7 8.9 Phosphorus 3.6 Magnesium 1.5 L Total Bilirubin 0.7 0.4 0.5 Direct Bilirubin 0.2 AST 15 13 12 ALT 8 L < 7 L < 7 L Alkaline Phosphatase 141 H 112 D 110 Total Protein 6.7 5.9 6.1 Albumin 4.9 H 4.2 D 4.4 Globulin 1.8 L 1.7 L 1.7 L Albumin/Globulin Ratio 2.7 H 2.5 H 2.6 H Lipase 23 Quality Measures Quality Measures VTE prophylaxis Advance care planning discussed with:: patient and child Assessment & Plan Assessment Current Active Medications: Generic Name Dose Route Start Last Admin Trade Name Freq PRN Reason Stop Dose Admin Acetaminophen 650 mg 04/13/25 00:24 Acetaminophen 325 Mg Tablet PO 05/13/25 00:23 Q6HR PRN PAIN (1-3) OR FEVER > 100.4 Dextrose 25 ml 04/13/25 01:47 Dextrose 50%-Water Inj 50 Ml Syringe IV 05/13/25 01:46 Q15MIN PRN BG 50-70 responsive npo pt Dextrose 50 ml 04/13/25 01:47 Dextrose 50%-Water Inj 50 Ml Syringe IV 05/13/25 01:46 Q15MIN PRN BG <50 OR BG <70 & pt unresponsive Glucagon 1 mg 04/13/25 01:47 Glucagon Inj 1 Mg Vial IM Q15MIN PRN BG <70, and no IV access Hydromorphone HCl 1 mg 04/13/25 00:24 04/13/25 03:15 Hydromorphone Inj 2 Mg/Ml Vial IVP 04/18/25 00:23 1 mg Q4H PRN Administration Severe Pain (7-10) Sodium Chloride 1,000 mls @ 100 mls/hr 04/12/25 23:42 04/12/25 23:48 Ns IV 04/13/25 09:41 100 mls/hr .Q10H ONE Administration Insulin Human Lispro 0 unit 04/13/25 07:30 Insulin Lispro (Admelog) 1 Unit/0.01 Ml Unit SC 05/13/25 07:29 ACHS NAKUL Protocol Ondansetron HCl 4 mg 04/13/25 01:44 Ondansetron Inj 2 Mg/Ml Inj 2 Ml IVP 05/13/25 01:43 Q6HR PRN NAUSEA OR VOMITING Protocol Pantoprazole Sodium 40 mg 04/13/25 09:00 Pantoprazole Inj 40 Mg Vial IVP 05/13/25 08:59 QDAY NAKUL Plan 69-year-old female with a history of hypertension, type II diabetes mellitus, and anxiety presents to the emergency department with a acute on subacute post prandial ruq pain associated with nausea and vomiting found to have gallstones on US outpatient, likely billiary colic. pt admitted for infectious work up, pain managment and possible cholecystectomy. #Cholelithiasis #Biliary Colic #Right upper quadrant pain vs R flank pain #Leukocytosis Acute on subchronic presentation of RUQ post prandial pain, patient reports having taken NSAIDS regularly for chronic back pain CT Abdo pelvis showed cholelithiasis, liver mildly irregular in contour, no common bile duct or common hepatic duct stone, no bowel obstruction Gallbladder ultrasound showed cholelithiasis, negative for cholecystitis WBC 18 Afebrile lipase wnl, no CVA tenderness, Plan ? General Surgery consulted, Dr. Parham, appreciate recs ? N.p.o. ? Analgesia, APAP 650 PO scheduled and Morphine 2mg IV q4hr prn ? Maintenance fluid ? No indication for antibiotics at this stage #GERD #Delayed gastric emptying pt reports lots of gerd symptoms, she states that she last took ozempic in december and then was switched to mounjaro in january. she did not tolerate the medications well and d/c at end of january, she had lots of GI distress from those medications also givn hx of NSAID use for back pain, she may have PUD. Hgb 10.9 from 13 on admission home meds: Famotidine 20 mg po qd and omeprazole 20 mg po qd. Plan - Viscous Lidocaine 20 - Protonix 40 qd - maalox prn #Acute Normocytic Anemia hgb on admission 13, and on prior labs has been wnl, during current admission hgb 10.9, pt states that she had some blood tinged emesis but no erich blood by mouth she does have cirrhosis, possibly 2/2 NAFLD Plan - Daily CBC - transfuse if <7 - consider GI consult for possible EGD if continues to downtrend. #Hypokalemia- resolved Likely in the setting of GI loss Plan - daily cmp #Type 2 diabetes mellitus Last A1c 6.4 Takes metformin 1 g daily Plan ? Insulin sliding scale ordered ? Hypoglycemia protocol in place ? A1c level 6.4 #HTN - hold losartan 50mg po qd, pt is normo to slightly hypotensive at present #Chronic LBP - takes norco at home 1 tab q8hr, see pain regimen above for cholelithiasis #Peripheral Neuropathy - gabapentin 300 mg TID #HLD atorvastatin 40 mg qd Health Maintenance: Diet: N.p.o. GI prophylaxis: Protonix 40 mg daily DVT prophylaxis: SCDs given concern for bleed and possible surgery today Antibiotics: None CODE STATUS: [facility] Provider Attestation/Addendum I have seen and examined the patient. I was physically present for the valles portions of the services provided including history, physical exam, diagnosis, treatment plans and orders. I agree with assessment and plan of care as documented by residents. Patient seen and examined at bedside this morning. She is a 69 years old female with past medical history of hypertension, type 2 diabetes mellitus, anxiety who presented to the ED with complaint of worsening right sided abdominal pain associated with nausea and vomiting. She was admitted overnight for management of cholelithiasis, intractable abdominal pain. At bedside, patient continues to have right-sided pain, appears to be on distress, requiring [id number] IV analgesics. Abdomen/pelvis CT showed cirrhosis, cholelithiasis but no finding of cholecystitis. Gallbladder ultrasound also showed cholelithiasis without cholecystitis. Noted to have WBC of 18.5 but does not have any fever. Continues to be nauseous. Lab results are mostly stable including liver panel, only has magnesium of 1.5, repleted accordingly, A1c 6.4. Discussed with general surgery, obtained UA but was negative for any blood or finding of infection, patient is planned for laparoscopic cholecystectomy, due to worsening pain. Even though this this note was carefully revised there may still be minor errors in reuse technician due to voice recognition software. Smooth Sullivan MD
[2025-04-13] MEDS: ACETAMINOPHEN 325 MG TABLET 650 MG PO ×2 (09:34→22:37)
[2025-04-13] MEDS: Magnesium Sulfate 4 GM Ivpb 4 GM/50 ML BAG IV (09:35)
[2025-04-13] MEDS: ONDANSETRON INJ 2 MG/ML INJ 2 ML 4 MG IVP ×2 (09:35→18:36)
--- NOTE | 2025-04-13 11:36 | PD.SURPROG ---
Documentation for date of: 04/13/25 Subjective Subjective Brief History: History of present illness revealed that the patient has been experiencing some pain over the right side of the abdomen under the rib cage for a few months. She was seen by Rosa at [facility] and was ordered to have an ultrasound 1 week ago. Patient was found to have gallstones and she was waiting for the referral to me for surgery. But starting yesterday she had uncontrolled severe pain over the right flank and came to the emergency room and was found to have significant tenderness. She was admitted to the hospital and a CT scan showed some fluid in the liver and gallstones. The ultrasound confirmed the gallstones. Patient's pain is very severe accompanied by exacerbation. She cannot even move and is planning to lie down on the left side and she cannot lie down on the right side. She has had some back pain in the past. Her other medical problem consist of diabetes and hypertension past surgery consisted of knee replacement and carpal tunnel. Patient is also taking gabapentin for her nerve pain in her hands and legs Narrative: The patient continues to have a pain over the right flank as well as in the right lower quadrant of the abdomen. She is on narcotics [id number] Exam Vital Signs Temp Pulse Resp BP Pulse Ox O2 Del Method 98.1 F 96 20 100/53 L 93 L Room Air 04/13/25 08:00 04/13/25 08:00 04/13/25 08:00 04/13/25 08:00 04/13/25 08:00 04/13/25 08:00 Vital signs are normal other than tachycardia due to pain Routine Abdominal Exam Comments: Abdominal examination is unchanged Assessment & Plan Assessment Additional comments: Impression: I have ordered a urinalysis to make sure that there is no blood in the urine to suspect renal stone. Because of the continuing pain I will arrange for laparoscopic cholecystectomy Plan Plan: Patient was told that laparoscopic cholecystectomy will be arranged. But even after surgery she may continue to have a pain if it is not due to the gallbladder. She is agreeable the procedure for laparoscopic cholecystectomy was explained to her including the potential complications and need for open cholecystectomy.
[2025-04-13 11:37] LABS: Collection Type, Urine Catheter
[2025-04-13 11:47] LABS: Bilirubin,Urine Negative (Negative); Blood,Urine Negative (Negative); Clarity,Urine Clear (Clear/Hazy); Color,Urine Lt-Yellow (Lt Yel-Yel); Glucose, Urine Negative (Negative); Ketones,Urine Negative (Negative); Leukocyte Esterase,Urine Negative (Negative); Nitrite,Urine Negative (Negative); PH,Urine 6.5 (5.0-7.0); Protein,Urine Negative (Neg - Trace); RBC,Urine 3 /hpf (0-3); Specific Gravity,Urine 1.019 (1.001-1.035); Squamous Epithelial Cell,Urine 3 /hpf (0-5); Urobilinogen,Urine Negative mg/dL (0.0-1.0); WBC,Urine 3 /hpf (0-5)
--- NOTE | 2025-04-13 14:40 | PC.SS ---
69YO Female; Reason for visit: CHOLELITHIASIS Initial assessment completed at bedside with patient and her daughter Joyce Jenkins [phone]. Role and purpose of today's contact was explained. Joyce provided information on patient's behalf due to patient appearing in pain. Patient resides with her son. Patient's primary medical surrogate decisionmaker is her daughter Joyce Jenkins [phone]. Patient is independent with ADL completion and independent with ambulation as well. PHARMACY: [facility]. PCP: Rosa Ku, last appt. was 04/06/25. Patient requesting to return home when medically clear. NEXT OF KIN: Daughter Joyce Jenkins [phone]. DISCHARGE PLAN: Home, family to provide transport.
--- NOTE | 2025-04-13 16:12 | PD.SUROPNT ---
Date of Procedure 04/13/25 Pre Op Diagnosis Symptomatic cholelithiasis Post Op Diagnosis Same, inflammatory exudate right flank possibly perforated appendicitis Procedure Diagnostic laparoscopy and removal of omental inflammatory nodules and irrigation of the peritoneal cavity followed by laparoscopic cholecystectomy Findings Patient is found to have inflamed purulent material over the right side presenting as an exudate. This is probably the reason for her pain over the right flank the lower abdomen. Exploration of the gallbladder showed no acute inflammation Procedure Description For the patient was brought to the operating room endotracheal anesthesia was given. Patient received 2 g of Ancef. Timeout is performed. Abdomen was prepped with ChloraPrep solution and draped in a sterile manner before the timeout. Then I made a small incision below the umbilicus and the fascia was cleaned. Veress needle was inserted and pneumoperitoneum was created up to 15 mmHg. Then introduced a 12 mm trocar and passed the scope and the abdominal cavity and I found out that omentum was covering the gallbladder. Initially I thought that the patient had acute cholecystitis. I placed a second trocar in the epigastric region and removal of the fat showed that the gallbladder was not inflamed but it was distended. Then I realized the patient had some exudate over the right gutter and around the liver just like it was seen on the preoperative CT scan. This appeared to be purulent in nature. This was aspirated and I started looking for the source. I felt that it could be from the appendicitis or diverticulitis on the right colon which might have ruptured. I placed another trocar in the right lower quadrant of the abdomen on the fourth trocar between the umbilicus and the xiphoid process. Using laparoscope I explored the pelvis as much as I could. I was lifting up the cecum but appendix could not be seen. Thorough irrigation was carried out and looked for any inflammatory mass. The omentum however had some nodules which look like an inflammation or some tumor which might have ruptured. I could not clearly call this as acute appendicitis because I could never see the appendix or a perforated 1. This area was irrigated and the omental nodules were removed for pathophysiology examination. Then after irrigation of the wound I felt that there is no contraindication to proceed with laparoscopic cholecystectomy. This was proceeded in the usual manner lifting the gallbladder which was tense. This was aspirated and then dissection was carried out by peeling the omentum and in the process it ruptured and the stone came out. The gallbladder was controlled with Endoloop to close the perforation and further irrigation carried out till we went to the neck. I was able to identify the cystic duct which was clipped and divided patient also had a cystic artery which was similarly dealt with. The gallbladder was removed from the liver bed and delivered with 1 stone inside at the neck. Then I removed 2 or 3 stones from the abdominal cavity which is escaped during the perforation of the gallbladder. Then extensive irrigation was carried out and checked for the bleeding point. Trocars were pulled out and the fascia was closed with interrupted 0 Ethibond on the skin by 4-0 nylon sutures and 4-0 Monocryl. Patient tolerated the procedure well. Anesthesia GETA Pathology / specimen Other (Inflamed omental nodules, #2 gallbladder with stones) IVF Infused 1,200 Estimated Blood Loss 100 Condition Stable Disposition PACU Surgeon Vance Ball MD Surgical Staff Operation Date: 04/13/25 13:00 Case Staff Anesthesiologist: Gilbert Yadav RNarea intelligence technician: Pramod Huang
--- NOTE | 2025-04-13 16:14 | SUR.PHASEI ---
1614: pt received from OR via [facility]. received report from Dr. Yadav and GRIS Benson. oral airway in place. no s/s of pain or discomfort. no s/s resp. distress or discomfort. dressing to abdomen x6 clean, dry and intact.
--- NOTE | 2025-04-13 16:53 | SUR.PHASEI ---
Addendum entered by Leslie Belle RN 04/13/25 17:23: change time to 1710 instead of 165 Original Note: 165: pt transfer back in the room viagurney. pt alert and oriented. no s/s of resp. distress or discomfort. denies nay pain or discomfort. dressing to abdomen clean, dry and intact.
--- NOTE | 2025-04-13 16:57 | SUR.PHASEI ---
1657: report given at this time
[2025-04-13] MEDS: metroNIDAZOLE/NS 500 MG IVPB 500 MG/100 ML BAG 200 MG IV (17:13)
[2025-04-13] MEDS: SODIUM CHLORIDE 0.9% 1000 ML 1,000 ML 100 ML IV (17:14)
[2025-04-13] MEDS: MORPHINE SULF INJ 4 MG/ML VIAL IVP (20:24)
[2025-04-13] MEDS: GABAPENTIN 300 MG CAPSULE PO (22:37)
[2025-04-13] MEDS: ceFAZolin/D5W 2 GM IV 2 GM/100 ML BAG IV (22:38)
[2025-04-14] VITALS (7 sets, daily range): BP systolic 93–127; BP diastolic 59–76; PULSE 76–100; RESP 16–91; TEMP 36.1–36.7; O2SAT 93–96
[2025-04-14] MEDS: metroNIDAZOLE/NS 500 MG IVPB 500 MG/100 ML BAG 200 MG IV ×5 (00:01→23:31)
[2025-04-14] MEDS: MORPHINE SULF INJ 4 MG/ML VIAL IVP ×3 (00:43→08:44)
[2025-04-14] MEDS: SODIUM CHLORIDE 0.9% 1000 ML 1,000 ML 100 ML IV ×2 (04:39→17:14)
[2025-04-14] MEDS: ceFAZolin/D5W 2 GM IV 2 GM/100 ML BAG IV ×3 (05:36→21:27)
[2025-04-14] MEDS: GABAPENTIN 300 MG CAPSULE PO ×3 (05:37→21:27)
[2025-04-14] MEDS: ACETAMINOPHEN 325 MG TABLET 650 MG PO ×2 (05:37→17:14)
[2025-04-14 05:54] LABS: Basophils # (Auto) 0.0 Thou/mm3 (0.0-0.2); Basophils % (Auto) 0 % (0-2.5); Eosinophils # (Auto) 0.0 Thou/mm3 (0.0-0.5); Eosinophils % (Auto) 0 % (0-10); Hematocrit 29.0 % (36.0-46.0); Hemoglobin 9.9 g/dL (12.0-16.0); Immature Granulocytes Auto 0.17 Thou/mm3 (0.00-0.00); Lymphocytes # (Auto) 0.5 Thou/mm3 (1.0-4.8); Lymphocytes % (Auto) 3 % (10-50); Mean Corpuscular HGB Conc 34.1 g/dl (31.0-37.0); Mean Corpuscular Hemoglobin 30.8 pg (25.0-35.0); Mean Corpuscular Volume 90 fL (80-100); Monocytes # (Auto) 0.8 Thou/mm3 (0.0-0.8); Monocytes % (Auto) 5 % (0-12); Neutrophils # (Auto) 16.0 Thou/mm3 (1.8-7.7); Neutrophils % (Auto) 91 % (37-80); Nucleated Red Blood Cell # 0.00 Thou/mm3 (0.00-0.00); Nucleated Red Blood Cell % 0 /100 WBC (0); Platelet Count 216 Thou/mm3 (140-440); RDW Standard Deviation 43.6 fL (36.4-46.3); Red Blood Count 3.21 Miln/mm3 (4.00-5.20); White Blood Count 17.5 Thou/mm3 (3.6-11.0)
[2025-04-14 06:08] LABS: INR 1.2 (0.9-1.3); Prothrombin Time 12.4 Seconds (9.0-12.2)
[2025-04-14 06:31] LABS: Alanine Aminotransferase 8 U/L (10-49); Albumin, Serum 4.0 gm/dL (3.4-4.8); Albumin/Globulin Ratio 2.2 (1.2-2.2); Alkaline Phosphatase 103 U/L (46-116); Anion Gap 7 (7-16); Aspartate Amino Transferase 23 U/L (0-34); BUN/Creatinine Ratio 18 Ratio (12-20); Bilirubin,Total 0.3 mg/dL (0.3-1.2); Blood Urea Nitrogen 11 mg/dL (9-23); Calcium 8.9 mg/dL (8.3-10.6); Calcium (Corrected) 8.9 mg/dL (8.5-10.1); Carbon Dioxide 26.1 mMol/L (20.0-31.0); Chloride 107 mMol/L (98-107); Creatinine (Component) 0.6 mg/dL (0.6-1.3); Estimated Creatinine Clearance 85.5 mL/min (>60); Globulin 1.8 gm/dL (2.3-3.5); Glucose 126 mg/dL (74-106); Magnesium 2.0 mg/dL (1.6-2.6); Osmolality,Calculated 280 (275-295); Phosphorous 2.3 mg/dL (2.4-5.1); Potassium 4.0 mMol/L (3.4-5.1); Sodium 140 mMol/L (136-145); Total Protein 5.8 gm/dL (5.7-8.2); eGFR > 60 See Note
[2025-04-14] MEDS: NAPH,KPH MBDB 1 PACKET (1.5 GM) PO (08:44)
--- NOTE | 2025-04-14 09:52 | PD.SURPROG ---
Documentation for date of: 04/14/25 Subjective Subjective Brief History: History of present illness revealed that the patient has been experiencing some pain over the right side of the abdomen under the rib cage for a few months. She was seen by Rosa at [facility] and was ordered to have an ultrasound 1 week ago. Patient was found to have gallstones and she was waiting for the referral to me for surgery. But starting yesterday she had uncontrolled severe pain over the right flank and came to the emergency room and was found to have significant tenderness. She was admitted to the hospital and a CT scan showed some fluid in the liver and gallstones. The ultrasound confirmed the gallstones. Patient's pain is very severe accompanied by exacerbation. She cannot even move and is planning to lie down on the left side and she cannot lie down on the right side. She has had some back pain in the past. Her other medical problem consist of diabetes and hypertension past surgery consisted of knee replacement and carpal tunnel. Patient is also taking gabapentin for her nerve pain in her hands and legs Narrative: The patient is feeling better and is able to lay down on her back. The intensity of the pain is improved and she is not using as much pain medication as yesterday Exam Vital Signs Temp Pulse Resp BP Pulse Ox O2 Del Method O2 Flow Rate 97.4 F 82 18 93/59 L 93 L Nasal Cannula 4 04/14/25 08:00 04/14/25 08:00 04/14/25 08:00 04/14/25 08:00 04/14/25 08:00 04/14/25 04:00 04/13/25 18:11 Vital signs are normal Routine Abdominal Exam Comments: Abdominal examination showed some bleeding at the umbilical site site dressing Results Results: Laboratory Laboratory Narrative: Laboratory results that show leukocytosis of around 17,000. Liver enzymes are normal Assessment & Plan Assessment Additional comments: Impression: Stable postoperative. After laparoscopic cholecystectomy and drainage of infection in the great gutter Plan Plan: We shall continue IV antibiotics and wait for the report of the biopsy PROCEDURES: Procedures Diagnostic laparoscopy and removal of omental inflammatory nodules and irrigation of the peritoneal cavity followed by laparoscopic cholecystectomy
--- NOTE | 2025-04-14 10:01 | PD.RESPRO ---
Documentation for date of: 04/14/25 Subjective Subjective Interval history: patient seen and examined at bedside post op day 1 from lap mike and abdominal washout and omental nodules sent for pathology pt reports quality of r sided pain is changed, and slightly improved plan to trial norco for pain and minimize iv continues on iv abx Exam Vital Signs Temp Pulse Resp BP Pulse Ox O2 Del Method O2 Flow Rate 97.4 F 82 18 93/59 L 93 L Nasal Cannula 4 04/14/25 08:00 04/14/25 08:00 04/14/25 08:00 04/14/25 08:00 04/14/25 08:00 04/14/25 04:00 04/13/25 18:11 Narrative Exam General: AOx3, moderate distress from pain,laying in bed sitting at 45 angle, c/o r sided pain HEENT: NC/AT, mucous membranes moist, bilateral sclera anicteric Cardiovascular: regular rate and rhythm, S1/S2 present, no murmurs appreciated Pulmonary: clear to auscultation bilaterally, no rales/rhonchi/wheezes Abdominal: Abdomen is firm, no rebound no guardings, laproscopic incisions covered with dressing, mild tenderness on abdomen more notable on the R side. Musculoskeletal: normal ROM, no peripheral edema Skin: warm and dry, intact, no rashes, Neuro: CN II-XII intact, no focal deficits Objective Labs 04/14/25 05:32 04/14/25 05:32 Labs: Laboratory Results - last 24 hr 04/13/25 04/14/25 11:29 05:32 WBC 17.5 H RBC 3.21 L Hgb 9.9 L Hct 29.0 L MCV 90 MCH 30.8 MCHC 34.1 RDW Std Deviation 43.6 Plt Count 216 Neut % (Auto) 91 H Lymph % (Auto) 3 L [place] % (Auto) 5 Eos % (Auto) 0 Baso % (Auto) 0 Neut # (Auto) 16.0 H Lymph # (Auto) 0.5 L [place] # (Auto) 0.8 Eos # (Auto) 0.0 Baso # (Auto) 0.0 Immature Gran # (Auto) 0.17 H Absolute Nucleated RBC 0.00 Immature Gran % 1 H Nucleated RBC % 0 PT 12.4 H INR 1.2 Sodium 140 Potassium 4.0 Chloride 107 Carbon Dioxide 26.1 Anion Gap 7 BUN 11 Creatinine 0.6 Estim Creat Clear Calc 85.5 eGFR > 60 BUN/Creatinine Ratio 18 Glucose 126 H Calculated Osmolality 280 Calcium 8.9 Corrected Calcium 8.9 Phosphorus 2.3 L Magnesium 2.0 Total Bilirubin 0.3 AST 23 ALT 8 L Alkaline Phosphatase 103 Total Protein 5.8 Albumin 4.0 Globulin 1.8 L Albumin/Globulin Ratio 2.2 Ur Collection Type Catheter Urine Color Lt-Yellow Urine Clarity Clear Urine pH 6.5 Ur Specific [place] 1.019 Urine Protein Negative Urine Glucose (UA) Negative Urine Ketones Negative Urine Blood Negative Urine Nitrite Negative Urine Bilirubin Negative Urine Urobilinogen (Auto) Negative Ur Leukocyte Esterase Negative Urine RBC 3 Urine WBC 3 Ur Squamous Epith Cells 3 Urine Bacteria None Quality Measures Quality Measures VTE prophylaxis Advance care planning discussed with:: patient and child Assessment & Plan Assessment Current Active Medications: Generic Name Dose Route Start Last Admin Trade Name Freq PRN Reason Stop Dose Admin Acetaminophen 650 mg 04/13/25 08:15 04/14/25 05:37 Acetaminophen 325 Mg Tablet PO 05/13/25 08:14 650 mg Q6HR NAKUL Administration Al Hydrox/Mg Hydrox/Simethicone 30 ml 04/13/25 10:09 Mg Hyd/Al Hyd/Hanny (Maalox Reg) Susp 30 Ml Udc PO 05/13/25 10:08 QID PRN UPSET STOMACH/INDIGESTION Dextrose 25 ml 04/13/25 01:47 Dextrose 50%-Water Inj 50 Ml Syringe IV 05/13/25 01:46 Q15MIN PRN BG 50-70 responsive npo pt Dextrose 50 ml 04/13/25 01:47 Dextrose 50%-Water Inj 50 Ml Syringe IV 05/13/25 01:46 Q15MIN PRN BG <50 OR BG <70 & pt unresponsive Gabapentin 300 mg 04/13/25 14:00 04/14/25 05:37 Gabapentin 300 Mg Capsule PO 05/13/25 13:59 300 mg TID NAKUL Administration Glucagon 1 mg 04/13/25 01:47 Glucagon Inj 1 Mg Vial IM Q15MIN PRN BG <70, and no IV access Cefazolin Sodium 2 gm in 100 mls @ 100 mls/hr 04/13/25 16:53 04/14/25 05:36 Ancef 2gm Ivpb IV 04/20/25 16:52 100 mls/hr Q8HR NAKLU Administration Metronidazole 500 mg in 100 mls @ 200 mls/hr 04/13/25 16:53 04/14/25 06:37 Flagyl 500 Mg Iv IV 04/20/25 16:52 200 mls/hr Q6HR NAKUL Administration Sodium Chloride 1,000 mls @ 100 mls/hr 04/13/25 16:53 04/14/25 04:39 Ns IV 05/13/25 16:52 100 mls/hr .Q10H NAKUL Administration Insulin Human Lispro 0 unit 04/13/25 07:30 04/14/25 06:36 Insulin Lispro (Admelog) 1 Unit/0.01 Ml Unit SC 05/13/25 07:29 Not Given ACHS NAKUL Protocol Metoprolol Tartrate 1 mg 04/13/25 15:44 Metoprolol Tartrate Inj 1 Mg/Ml Vial 5 Ml IVP Q5MIN PRN TACHYCARDIA Midazolam HCl 1 mg 04/13/25 15:43 Midazolam Inj 1 Mg/Ml Vial 2 Ml IVP 04/14/25 15:42 Q5MIN PRN ANXIETY Morphine Sulfate 4 mg 04/13/25 16:53 04/14/25 08:44 Morphine Sulf Inj 4 Mg/Ml Vial IVP 04/18/25 16:52 4 mg Q4HR PRN Administration PAIN SCALE 4-10(Mod-Sev Ondansetron HCl 4 mg 04/13/25 01:44 04/13/25 18:36 Ondansetron Inj 2 Mg/Ml Inj 2 Ml IVP 05/13/25 01:43 4 mg Q6HR PRN Administration NAUSEA OR VOMITING Protocol Pantoprazole Sodium 40 mg 04/13/25 09:00 04/14/25 08:44 Pantoprazole Inj 40 Mg Vial IVP 05/13/25 08:59 40 mg QDAY NAKUL Administration Plan 69-year-old female with a history of hypertension, type II diabetes mellitus, and anxiety presents to the emergency department with a acute on subacute post prandial ruq pain associated with nausea and vomiting found to have gallstones on US outpatient, likely billiary colic. pt admitted for infectious work up, found to have fluid surrounding liver, on lap mike, found to have puralent liquid around liver, abdomen was washed out, and gb removed, continues on iv abx. #S/p laproscopic cholecystectomy POD 1 #Cholelithiasis #Biliary Colic #Pus in the R abdomen around liver, seen on lap mike #Leukocytosis - persists Acute on subchronic presentation of RUQ post prandial pain, patient reports having taken NSAIDS regularly for chronic back pain CT Abdo pelvis showed cholelithiasis, liver mildly irregular in contour, no common bile duct or common hepatic duct stone, no bowel obstruction Gallbladder ultrasound showed cholelithiasis, negative for cholecystitis WBC 18 Afebrile lipase wnl, no CVA tenderness, 04/13, pt went to surgery for removal of gb with stones, and was found to have puralent material in the RUQ, no ruptured appendix was visualized. Plan ? General Surgery consulted, Dr. Parham, appreciate recs , post lap mike and wash out of pus in the ruq ? clear liquid, advance as tolerated ? Analgesia, [place] 10-325 BID (home med is 7.5) and Morphine 2mg IV q4hr prn ? Maintenance fluid, NS 100 cc/hr ? Cefazolin 2 gm q8hr (04/12- - Metronidazole 500 q6hr (04/13- Foul Smelling Urine c/f UTI post op from lap choelesystectomy, pt reports foul smelling urine, c/f uti, is on abx for intrabdominal infection/cholecystitis, initial UA was [place], she denies LUTS. Plan - pending collection of repeat UA. #GERD #Delayed gastric emptying pt reports lots of gerd symptoms, she states that she last took ozempic in december and then was switched to mounjaro in january. she did not tolerate the medications well and d/c at end of january, she had lots of GI distress from those medications also givn hx of NSAID use for back pain, she may have PUD. Hgb 10.9 from 13 on admission home meds: Famotidine 20 mg po qd and omeprazole 20 mg po qd. #Acute Normocytic Anemia hgb on admission 13, and on prior labs has been wnl, during current admission hgb 10.9, pt states that she had some blood tinged emesis but no erich blood by mouth she does have cirrhosis, possibly 2/2 NAFLD Hgb 13-->10.9-->9.9 Plan - Daily CBC - transfuse if <7 - consider GI consult for possible EGD if continues to downtrend. #Hypokalemia- resolved Likely in the setting of GI loss Plan - daily cmp #Type 2 diabetes mellitus Last A1c 6.4 Takes metformin 1 g daily Plan ? Insulin sliding scale ordered ? Hypoglycemia protocol in place ? A1c level 6.4 #HTN - hold losartan 50mg po qd, pt is normo to slightly hypotensive at present #Chronic LBP - takes norco at home 1 tab q8hr, see pain regimen above for cholelithiasis #Peripheral Neuropathy - gabapentin 300 mg TID #HLD atorvastatin 40 mg qd #Hypophosphatemia Plan Replete as indicated Health Maintenance: Diet: clear liquid diet. GI prophylaxis: Protonix 40 mg daily DVT prophylaxis: SCDs given concern for bleed and possible surgery today Antibiotics: None CODE STATUS: Full Disposition: MedSurg Plan discussed with my attending Dr. Laurie Luevano MD PGY1 Attending Provider Attestation/Addendum I have seen and examined the patient. I was physically present for the valles portions of the services provided including history, physical exam, diagnosis, treatment plans and orders. I agree with assessment and plan of care as documented by residents. Patient seen and examined at bedside this morning. Appears to be in pain but states that her pain is better compared to yesterday. Underwent laparoscopy and removal of omental inflammatory nodules with elevation of the peritoneal cavity followed by laparoscopic cholecystectomy. She was found to have inflamed purulent material over the right side presenting as exudate but the source of purulent material was not very clear. We will continue with broad-spectrum IV antibiotics, await culture results and monitor closely. Vital signs are stable. WBC count is slowly downtrending. Chemistry panel remain stable. Patient and family at bedside updated about patient's condition and further management plan, answered all their questions to satisfaction, patient and family show agreement with plan. Even though this this note was carefully revised there may still be minor errors in medical transcription editor due to voice recognition software. Smooth Sullivan MD
[2025-04-14 14:44] LABS: Bacteria,Urine Rare; Bilirubin,Urine Negative (Negative); Blood,Urine Negative (Negative); Clarity,Urine Clear (Clear/Hazy); Collection Type, Urine Clean Catch; Color,Urine Yellow (Lt Yel-Yel); Culture Indicated,Urine Not Indicated; Glucose, Urine Negative (Negative); Ketones,Urine Negative (Negative); Leukocyte Esterase,Urine Negative (Negative); Nitrite,Urine Negative (Negative); PH,Urine 6.0 (5.0-7.0); Protein,Urine Negative (Neg - Trace); RBC,Urine 5 /hpf (0-3); Specific Gravity,Urine 1.021 (1.001-1.035); Squamous Epithelial Cell,Urine 3 /hpf (0-5); Urobilinogen,Urine Negative mg/dL (0.0-1.0); WBC,Urine 3 /hpf (0-5)
[2025-04-14] MEDS: MORPHINE SULF INJ 4 MG/ML VIAL 2 MG IVP ×2 (15:13→23:20)
[2025-04-15] VITALS (8 sets, daily range): BP systolic 136–183; BP diastolic 82–95; PULSE 85–96; RESP 18–94; TEMP 36.1–36.7; O2SAT 92–94
[2025-04-15] MEDS: MG HYD/AL HYD/SIME (Maalox Reg) SUSP 30 ML UDC PO (01:40)
[2025-04-15] MEDS: MORPHINE SULF INJ 4 MG/ML VIAL 2 MG IVP ×4 (03:56→20:58)
[2025-04-15] MEDS: metroNIDAZOLE/NS 500 MG IVPB 500 MG/100 ML BAG 200 MG IV ×3 (05:13→17:52)
[2025-04-15] MEDS: SODIUM CHLORIDE 0.9% 1000 ML 1,000 ML 100 ML IV ×2 (05:14→20:53)
[2025-04-15] MEDS: GABAPENTIN 300 MG CAPSULE PO ×3 (05:16→20:59)
[2025-04-15] MEDS: ceFAZolin/D5W 2 GM IV 2 GM/100 ML BAG IV ×3 (06:15→20:59)
[2025-04-15 06:36] LABS: Basophils # (Auto) 0.0 Thou/mm3 (0.0-0.2); Basophils % (Auto) 0 % (0-2.5); Eosinophils # (Auto) 0.0 Thou/mm3 (0.0-0.5); Eosinophils % (Auto) 0 % (0-10); Hematocrit 29.0 % (36.0-46.0); Hemoglobin 9.9 g/dL (12.0-16.0); Immature Granulocytes Auto 0.23 Thou/mm3 (0.00-0.00); Lymphocytes # (Auto) 0.7 Thou/mm3 (1.0-4.8); Lymphocytes % (Auto) 5 % (10-50); Mean Corpuscular HGB Conc 34.1 g/dl (31.0-37.0); Mean Corpuscular Hemoglobin 30.7 pg (25.0-35.0); Mean Corpuscular Volume 90 fL (80-100); Monocytes # (Auto) 0.8 Thou/mm3 (0.0-0.8); Monocytes % (Auto) 6 % (0-12); Neutrophils # (Auto) 13.0 Thou/mm3 (1.8-7.7); Neutrophils % (Auto) 88 % (37-80); Nucleated Red Blood Cell # 0.00 Thou/mm3 (0.00-0.00); Nucleated Red Blood Cell % 0 /100 WBC (0); Platelet Count 243 Thou/mm3 (140-440); RDW Standard Deviation 42.8 fL (36.4-46.3); Red Blood Count 3.22 Miln/mm3 (4.00-5.20); White Blood Count 14.9 Thou/mm3 (3.6-11.0)
[2025-04-15] MEDS: HYDROmorphone INJ 2 MG/ML VIAL 1 MG IVP (06:49)
[2025-04-15 07:01] LABS: Alanine Aminotransferase 8 U/L (10-49); Albumin, Serum 3.9 gm/dL (3.4-4.8); Albumin/Globulin Ratio 2.3 (1.2-2.2); Alkaline Phosphatase 107 U/L (46-116); Anion Gap 10 (7-16); Aspartate Amino Transferase 34 U/L (0-34); BUN/Creatinine Ratio 18 Ratio (12-20); Bilirubin,Total 0.3 mg/dL (0.3-1.2); Blood Urea Nitrogen 9 mg/dL (9-23); Calcium 8.9 mg/dL (8.3-10.6); Calcium (Corrected) 9.0 mg/dL (8.5-10.1); Carbon Dioxide 22.2 mMol/L (20.0-31.0); Chloride 106 mMol/L (98-107); Creatinine (Component) 0.5 mg/dL (0.6-1.3); Estimated Creatinine Clearance 102.6 mL/min (>60); Globulin 1.7 gm/dL (2.3-3.5); Glucose 148 mg/dL (74-106); Magnesium 1.7 mg/dL (1.6-2.6); Osmolality,Calculated 277 (275-295); Phosphorous 1.6 mg/dL (2.4-5.1); Potassium 3.3 mMol/L (3.4-5.1); Sodium 138 mMol/L (136-145); Total Protein 5.6 gm/dL (5.7-8.2); eGFR > 60 See Note
--- NOTE | 2025-04-15 08:23 | XR_ITS ---
EXAMINATION: Abdomen 2 views TECHNIQUE: AP upright AP supine abdomen 2 views Date and time: April 15, 2025, 0846 hours INDICATIONS: Abdominal distention this week. FINDINGS: Moderate air and stool throughout the colon Mild small bowel ileus No free air Surgical clips upper right abdomen IMPRESSION: Mild small bowel ileus
--- NOTE | 2025-04-15 08:31 | ESPR_ITS ---
<Statement entered by Diogo Reed MD - 04/15/25 16:52> Pt is seen at bedside, currently sitting on a chair at bedside. Pt reports she is very uncomfortable due to post op gas and currently not passing any gas. Pt denies Nausea or vomiting. Pt is trying to ambulate. Abdominal xray ordered by general surgery shows mild small bowel ilius. Will continue to monitor, continue liquid diet and will advance as pt is able to tolerate. Pt is started on simethacone and bowel regimen. Patient was seen and examined by me personally. I have directly supervised and reviewed documentation by the team resident and agree with its findings. ------- Plan of care was discussed with the attending, Dr. Laurie Reed, PGY-2 Documentation for date of: 04/15/25 Subjective Subjective Interval history: * Patient seen and examined at bedside. * Postop day 2 from cholecystectomy * Patient is in a lot of discomfort today. * Has not passed gas. Will continue simethicone. * Abdominal x-ray suspicious for small bowel ileus. Exam Vital Signs Temp Pulse Resp BP Pulse Ox O2 Del Method O2 Flow Rate 98.1 F 89 20 167/94 H 94 L Nasal Cannula 2 04/15/25 07:40 04/15/25 07:40 04/15/25 07:40 04/15/25 07:40 04/15/25 07:40 04/15/25 07:40 04/15/25 07:40 Narrative Exam General: Sitting in chair, appears uncomfortable. Conversational. Neurologic: GCS 15. Alert and oriented x3, no gross neurological deficit, and patient able to move all 4 extremities. HEENT: Normocephalic, atraumatic, mucous membranes moist. Pupils reactive to light. Heart: Regular rate and rhythm, normal S1 and S2, no murmurs. Lungs: Clear to auscultation bilaterally with no wheezing or crackles. Abdomen: Firm, distended, healing laparoscopic surgical scars. Extremities: No edema. 2+ radial and dorsalis pedis pulses bilaterally. Skin: Warm. Dry. No rash or ecchymoses. Objective Labs 04/16/25 05:52 04/16/25 05:52 Labs: Laboratory Results - last 24 hr 04/14/25 04/15/25 13:20 05:30 WBC 14.9 H RBC 3.22 L Hgb 9.9 L Hct 29.0 L MCV 90 MCH 30.7 MCHC 34.1 RDW Std Deviation 42.8 Plt Count 243 Neut % (Auto) 88 H Lymph % (Auto) 5 L [place] % (Auto) 6 Eos % (Auto) 0 Baso % (Auto) 0 Neut # (Auto) 13.0 H Lymph # (Auto) 0.7 L [place] # (Auto) 0.8 Eos # (Auto) 0.0 Baso # (Auto) 0.0 Immature Gran # (Auto) 0.23 H Absolute Nucleated RBC 0.00 Immature Gran % 2 H Nucleated RBC % 0 Sodium 138 Potassium 3.3 L D Chloride 106 Carbon Dioxide 22.2 Anion Gap 10 BUN 9 Creatinine 0.5 L Estim Creat Clear Calc 102.6 eGFR > 60 BUN/Creatinine Ratio 18 Glucose 148 H Calculated Osmolality 277 Calcium 8.9 Corrected Calcium 9.0 Phosphorus 1.6 L Magnesium 1.7 Total Bilirubin 0.3 AST 34 ALT 8 L Alkaline Phosphatase 107 Total Protein 5.6 L Albumin 3.9 Globulin 1.7 L Albumin/Globulin Ratio 2.3 H Ur Collection Type Clean Catch Urine Color Yellow Urine Clarity Clear Urine pH 6.0 Ur Specific [place] 1.021 Urine Protein Negative Urine Glucose (UA) Negative Urine Ketones Negative Urine Blood Negative Urine Nitrite Negative Urine Bilirubin Negative Urine Urobilinogen (Auto) Negative Ur Leukocyte Esterase Negative Urine RBC 5 H Urine WBC 3 Ur Squamous Epith Cells 3 Urine Bacteria Rare Ur Culture Indicated? Not Indicated Quality Measures Quality Measures VTE prophylaxis Advance care planning discussed with:: patient Assessment & Plan Assessment Current Active Medications: Generic Name Dose Route Start Last Admin Trade Name Freq PRN Reason Stop Dose Admin Acetaminophen 650 mg 04/13/25 08:15 04/15/25 06:24 Acetaminophen 325 Mg Tablet PO 05/13/25 08:14 Not Given Q6HR NAKUL Hydrocodone Bitart/Acetaminophen 1 tab 04/14/25 10:31 04/15/25 01:37 Hydrocodone/[place] 10/325 Tab PO 04/19/25 10:30 1 tab Q6HR PRN Administration PAIN SCALE 4-6 Al Hydrox/Mg Hydrox/Simethicone 30 ml 04/13/25 10:09 04/15/25 01:40 Mg Hyd/Al Hyd/Hanny (Maalox Reg) Susp 30 Ml Udc PO 05/13/25 10:08 30 ml QID PRN Administration UPSET STOMACH/INDIGESTION Dextrose 25 ml 04/13/25 01:47 Dextrose 50%-Water Inj 50 Ml Syringe IV 05/13/25 01:46 Q15MIN PRN BG 50-70 responsive npo pt Dextrose 50 ml 04/13/25 01:47 Dextrose 50%-Water Inj 50 Ml Syringe IV 05/13/25 01:46 Q15MIN PRN BG <50 OR BG <70 & pt unresponsive Docusate Sodium 100 mg 04/15/25 09:00 Docusate Sod 100 Mg Capsule PO 05/15/25 08:59 QDAY [facility] Protocol Gabapentin 300 mg 04/13/25 14:00 04/15/25 05:16 Gabapentin 300 Mg Capsule PO 05/13/25 13:59 300 mg TID NAKUL Administration Glucagon 1 mg 04/13/25 01:47 Glucagon Inj 1 Mg Vial IM Q15MIN PRN BG <70, and no IV access Cefazolin Sodium 2 gm in 100 mls @ 100 mls/hr 04/13/25 16:53 04/15/25 06:15 Ancef 2gm Ivpb IV 04/20/25 16:52 100 mls/hr Q8HR NAKUL Administration Metronidazole 500 mg in 100 mls @ 200 mls/hr 04/13/25 16:53 04/15/25 05:13 Flagyl 500 Mg Iv IV 04/20/25 16:52 200 mls/hr Q6HR NAKUL Administration Sodium Chloride 1,000 mls @ 100 mls/hr 04/13/25 16:53 04/15/25 05:14 Ns IV 05/13/25 16:52 100 mls/hr .Q10H NAKUL Administration Magnesium Sulfate 4 gm in 50 mls @ 12.5 mls/hr 04/15/25 08:26 Magnesium Sulfate Ivpb IV 04/15/25 12:25 X1 ONE Insulin Human Lispro 0 unit 04/13/25 07:30 04/15/25 07:33 Insulin Lispro (Admelog) 1 Unit/0.01 Ml Unit SC 05/13/25 07:29 Not Given ACHS [facility] Protocol Metoprolol Tartrate 1 mg 04/13/25 15:44 Metoprolol Tartrate Inj 1 Mg/Ml Vial 5 Ml IVP Q5MIN PRN TACHYCARDIA Morphine Sulfate 2 mg 04/14/25 10:31 04/15/25 03:56 Morphine Sulf Inj 4 Mg/Ml Vial IVP 04/18/25 16:52 2 mg Q4HR PRN Administration Pain Scale 7-10(Mod-Sev Ondansetron HCl 4 mg 04/13/25 01:44 04/13/25 18:36 Ondansetron Inj 2 Mg/Ml Inj 2 Ml IVP 05/13/25 01:43 4 mg Q6HR PRN Administration NAUSEA OR VOMITING Protocol Pantoprazole Sodium 40 mg 04/13/25 09:00 04/14/25 08:44 Pantoprazole Inj 40 Mg Vial IVP 05/13/25 08:59 40 mg QDAY NAKUL Administration Potassium Chloride 80 meq 04/15/25 08:25 Potassium Chloride 20 Meq Tabcr PO 04/15/25 08:26 X1 ONE Potassium Phos/Sodium Phos 1 packet 04/15/25 08:27 Naph,[facility] 1 Packet (1.5 Gm) PO 04/15/25 08:28 X1 ONE Simethicone 80 mg 04/15/25 08:20 Simethicone 80 Mg Chew PO 05/15/25 08:19 QID PRN GAS Plan Summary: 69-year-old female with a history of hypertension, type II diabetes mellitus, and anxiety who presented to the emergency department with acute on subacute post prandial ruq pain associated with nausea and vomiting and found to have gallstones on US outpatient, likely billiary colic. pt admitted for infectious work up, on lap mike was found to have puralent liquid around liver, abdomen was washed out, and gb removed, continues on iv abx. #S/p Laproscopic Cholecystectomy POD 2 #Cholelithiasis #Biliary Colic #Pus in the R abdomen around liver, seen on lap mike #Leukocytosis - persists Acute on subchronic presentation of RUQ post prandial pain, patient reports having taken NSAIDS regularly for chronic back pain CT Abdo pelvis showed cholelithiasis, liver mildly irregular in contour, no common bile duct or common hepatic duct stone, no bowel obstruction Gallbladder ultrasound showed cholelithiasis, negative for cholecystitis WBC 18, improving Afebrile lipase wnl, no CVA tenderness, 04/13, pt went to surgery for removal of gb with stones, and was found to have puralent material in the RUQ, no ruptured appendix was visualized. 04/15: Patient has not passed gas, is in discomfort. Abdominal x-ray showed evidence of small bowel ileus. Plan ? General Surgery consulted, Dr. Parham, appreciate recs , post lap mike and wash out of pus in the ruq ? Clear liquid, advance as tolerated ? Analgesia, [place] 10-325 BID (home med is 7.5) and Morphine 2mg IV q4hr prn ? Maintenance fluid, NS 100 cc/hr ? Cefazolin 2 gm q8hr (04/12- - Metronidazole 500 q6hr (04/13- ? Will continue antibiotics and encourage ambulation, monitor for flatus. Foul Smelling Urine c/f UTI post op from lap choelesystectomy, pt reports foul smelling urine, c/f uti, is on abx for intrabdominal infection/cholecystitis, initial UA was [place], she denies LUTS. Plan - Repeat UA only positive for 5 RBCs #GERD #Delayed gastric emptying pt reports lots of gerd symptoms, she states that she last took ozempic in december and then was switched to mounjaro in january. she did not tolerate the medications well and d/c at end of january, she had lots of GI distress from those medications also givn hx of NSAID use for back pain, she may have PUD. Hgb 10.9 from 13 on admission Plan: - Famotidine 20 mg po qd and omeprazole 20 mg po qd. #Acute Normocytic Anemia hgb on admission 13, and on prior labs has been wnl, during current admission hgb 10.9, pt states that she had some blood tinged emesis but no erich blood by mouth she does have cirrhosis, possibly 2/2 NAFLD Hgb stable Plan - Daily CBC - transfuse if <7 - consider GI consult for possible EGD if continues to downtrend. #Hypokalemia- Resolved Likely in the setting of GI loss Plan - Daily cmp #Type 2 diabetes mellitus Last A1c 6.4 Takes metformin 1 g daily Plan ? Insulin sliding scale ? Hypoglycemia protocol in place #HTN - Patient has had stage 2 HTN Plan: - Restarted losartan 50mg po qd for 04/16/25 #Chronic LBP - Takes norco at home 1 tab q8hr, see pain regimen above for cholelithiasis #Peripheral Neuropathy - Gabapentin 300 mg TID #HLD - Atorvastatin 40 mg qd #Hypophosphatemia Plan Replete as indicated Health Maintenance: Diet: Clear liquid diet. GI prophylaxis: Protonix 40 mg daily DVT prophylaxis: SCDs Antibiotics: None CODE STATUS: Full Disposition: MedSurg, POD 2 from laparoscopic cholecystectomy. Encouraging ambulation. Patient was seen and discussed with my attending physician Dr. Laurie WILCOX and my senior resident Dr. Derek WILCOX PGY-2. Damon Franco DO PGY-1. Attending Provider Attestation/Addendum I have seen and examined the patient. I was physically present for the valles portions of the services provided including history, physical exam, diagnosis, treatment plans and orders. I agree with assessment and plan of care as documented by residents. Even though this this note was carefully revised there may still be minor errors in aerial photographer due to voice recognition software. Smooth Sullivan MD
--- NOTE | 2025-04-15 08:41 | PD.SURPROG ---
Documentation for date of: 04/15/25 Subjective Subjective Brief History: History of present illness revealed that the patient has been experiencing some pain over the right side of the abdomen under the rib cage for a few months. She was seen by Rosa at [facility] and was ordered to have an ultrasound 1 week ago. Patient was found to have gallstones and she was waiting for the referral to me for surgery. But starting yesterday she had uncontrolled severe pain over the right flank and came to the emergency room and was found to have significant tenderness. She was admitted to the hospital and a CT scan showed some fluid in the liver and gallstones. The ultrasound confirmed the gallstones. Patient's pain is very severe accompanied by exacerbation. She cannot even move and is planning to lie down on the left side and she cannot lie down on the right side. She has had some back pain in the past. Her other medical problem consist of diabetes and hypertension past surgery consisted of knee replacement and carpal tunnel. Patient is also taking gabapentin for her nerve pain in her hands and legs Narrative: The patient is still experiencing fair amount of pain in the abdomen. She is not able to lie down because of difficulty in breathing. She also has no bowel function and no passage of gas. Exam Vital Signs Temp Pulse Resp BP Pulse Ox O2 Del Method O2 Flow Rate 98.1 F 89 20 167/94 H 94 L Nasal Cannula 2 04/15/25 07:40 04/15/25 07:40 04/15/25 07:40 04/15/25 07:40 04/15/25 07:40 04/15/25 07:40 04/15/25 07:40 Her vital signs are normal other than mild tachycardia and increased blood pressure Routine Abdominal Exam Comments: Abdominal examination shows very low bowel sounds and fair amount of distention. Results Results: Laboratory Laboratory Narrative: Laboratory results that show improving WBC. She is hypokalemic Assessment & Plan Assessment Additional comments: Impression: Slow recovery following surgery Plan Plan: I do not know what was inflammatory condition that caused her pain on the right flank and exudate. It is not from the gallbladder because it was not infected or inflamed. We still have to wait and see what happens with the mental process in the abdomen. We shall continue antibiotics and monitor her closely and await pathology result PROCEDURES: Procedures Diagnostic laparoscopy and removal of omental inflammatory nodules and irrigation of the peritoneal cavity followed by laparoscopic cholecystectomy
[2025-04-15] MEDS: Magnesium Sulfate 4 GM Ivpb 4 GM/50 ML BAG IV (09:04)
[2025-04-15] MEDS: SIMETHICONE 80 MG CHEW PO ×3 (09:06→17:50)
[2025-04-15] MEDS: NAPH,KPH MBDB 1 PACKET (1.5 GM) PO (09:06)
[2025-04-15] MEDS: DOCUSATE SOD 100 MG CAPSULE PO (09:07)
[2025-04-15] MEDS: ACETAMINOPHEN 325 MG TABLET 650 MG PO ×2 (11:50→17:50)
[2025-04-16] VITALS (8 sets, daily range): BP systolic 126–174; BP diastolic 75–112; PULSE 86–100; RESP 18–20; TEMP 36.3–36.6; O2SAT 92–93
[2025-04-16] MEDS: SIMETHICONE 80 MG CHEW PO ×3 (00:18→14:28)
[2025-04-16] MEDS: metroNIDAZOLE/NS 500 MG IVPB 500 MG/100 ML BAG 200 MG IV ×5 (00:19→23:01)
[2025-04-16] MEDS: DOCUSATE SOD 100 MG CAPSULE PO ×2 (01:21→08:31)
[2025-04-16] MEDS: MORPHINE SULF INJ 4 MG/ML VIAL 2 MG IVP ×4 (03:47→22:11)
[2025-04-16] MEDS: ONDANSETRON INJ 2 MG/ML INJ 2 ML 4 MG IVP (03:50)
[2025-04-16] MEDS: ceFAZolin/D5W 2 GM IV 2 GM/100 ML BAG IV ×3 (06:10→22:01)
[2025-04-16 06:15] LABS: Basophils # (Auto) 0.0 Thou/mm3 (0.0-0.2); Basophils % (Auto) 0 % (0-2.5); Eosinophils # (Auto) 0.0 Thou/mm3 (0.0-0.5); Eosinophils % (Auto) 0 % (0-10); Hematocrit 32.2 % (36.0-46.0); Hemoglobin 10.9 g/dL (12.0-16.0); Immature Granulocytes Auto 0.25 Thou/mm3 (0.00-0.00); Lymphocytes # (Auto) 1.1 Thou/mm3 (1.0-4.8); Lymphocytes % (Auto) 8 % (10-50); Mean Corpuscular HGB Conc 33.9 g/dl (31.0-37.0); Mean Corpuscular Hemoglobin 31.0 pg (25.0-35.0); Mean Corpuscular Volume 92 fL (80-100); Monocytes # (Auto) 1.1 Thou/mm3 (0.0-0.8); Monocytes % (Auto) 8 % (0-12); Neutrophils # (Auto) 11.1 Thou/mm3 (1.8-7.7); Neutrophils % (Auto) 82 % (37-80); Nucleated Red Blood Cell # 0.00 Thou/mm3 (0.00-0.00); Nucleated Red Blood Cell % 0 /100 WBC (0); Platelet Count 263 Thou/mm3 (140-440); RDW Standard Deviation 43.9 fL (36.4-46.3); Red Blood Count 3.52 Miln/mm3 (4.00-5.20); White Blood Count 13.6 Thou/mm3 (3.6-11.0)
[2025-04-16 06:34] LABS: Alanine Aminotransferase < 7 U/L (10-49); Albumin, Serum 3.9 gm/dL (3.4-4.8); Albumin/Globulin Ratio 2.3 (1.2-2.2); Alkaline Phosphatase 121 U/L (46-116); Anion Gap 8 (7-16); Aspartate Amino Transferase 25 U/L (0-34); BUN/Creatinine Ratio 15 Ratio (12-20); Bilirubin,Total 0.5 mg/dL (0.3-1.2); Blood Urea Nitrogen 6 mg/dL (9-23); Calcium 8.5 mg/dL (8.3-10.6); Calcium (Corrected) 8.6 mg/dL (8.5-10.1); Carbon Dioxide 27.4 mMol/L (20.0-31.0); Chloride 104 mMol/L (98-107); Creatinine (Component) 0.4 mg/dL (0.6-1.3); Estimated Creatinine Clearance 128.3 mL/min (>60); Globulin 1.7 gm/dL (2.3-3.5); Glucose 117 mg/dL (74-106); Magnesium 1.8 mg/dL (1.6-2.6); Osmolality,Calculated 276 (275-295); Phosphorous 2.0 mg/dL (2.4-5.1); Potassium 3.6 mMol/L (3.4-5.1); Sodium 139 mMol/L (136-145); Total Protein 5.6 gm/dL (5.7-8.2); eGFR > 60 See Note
[2025-04-16] MEDS: LOSARTAN POTASSIUM 25 MG TABLET 50 MG PO (08:31)
[2025-04-16] MEDS: SODIUM CHLORIDE 0.9% 1000 ML 1,000 ML 100 ML IV (12:29)
[2025-04-16] MEDS: GLYCERIN, ADULT 1 EA SUPP 1 EACH PR (12:38)
--- NOTE | 2025-04-16 14:40 | PD.RESPRO ---
Documentation for date of: 04/16/25 Subjective Subjective Interval history: Overnight team reported patient was very uncomfortable throughout the night unable to lay in bed and was sitting up in chair due to discomfort unable to pass gas or have a bowel movement. Patient is seen and examined at bedside this morning patient is saturating on room air sitting up in the chair next to bed appears to be uncomfortable. Patient reports she has been able to pass gas starting 4 AM this morning however still no bowel movement and is still very uncomfortable due to abdominal distention. Although patient denies any vomiting she does feel nausea. Vitals are stable patient has remained afebrile, leukocyte count is down trended to 13.6 remainder of labs are stable. Phosphorus is repleted. Abdominal ultrasound obtained last night shows small bowel ileus. Exam Vital Signs Temp Pulse Resp BP Pulse Ox O2 Del Method O2 Flow Rate 97.4 F 89 20 166/84 H 93 L Room Air 2 04/16/25 11:46 04/16/25 11:46 04/16/25 11:46 04/16/25 11:46 04/16/25 11:46 04/16/25 11:46 04/15/25 11:31 Narrative Exam General: Sitting in chair, appears uncomfortable. Conversational. Neurologic: GCS 15. Alert and oriented x3, no gross neurological deficit, and patient able to move all 4 extremities. HEENT: Normocephalic, atraumatic, mucous membranes moist. Pupils reactive to light. Heart: Regular rate and rhythm, normal S1 and S2, no murmurs. Lungs: Clear to auscultation bilaterally with no wheezing or crackles. Abdomen: Firm, distended, healing laparoscopic surgical scars. Extremities: No edema. 2+ radial and dorsalis pedis pulses bilaterally. Skin: Warm. Dry. No rash or ecchymoses. Objective Labs 04/17/25 05:14 04/17/25 05:14 Labs: Laboratory Results - last 24 hr 04/16/25 05:52 WBC 13.6 H RBC 3.52 L Hgb 10.9 L Hct 32.2 L MCV 92 MCH 31.0 MCHC 33.9 RDW Std Deviation 43.9 Plt Count 263 Neut % (Auto) 82 H Lymph % (Auto) 8 L [place] % (Auto) 8 Eos % (Auto) 0 Baso % (Auto) 0 Neut # (Auto) 11.1 H Lymph # (Auto) 1.1 [place] # (Auto) 1.1 H Eos # (Auto) 0.0 Baso # (Auto) 0.0 Immature Gran # (Auto) 0.25 H Absolute Nucleated RBC 0.00 Immature Gran % 2 H Nucleated RBC % 0 Sodium 139 Potassium 3.6 Chloride 104 Carbon Dioxide 27.4 Anion Gap 8 BUN 6 L Creatinine 0.4 L Estim Creat Clear Calc 128.3 eGFR > 60 BUN/Creatinine Ratio 15 Glucose 117 H Calculated Osmolality 276 Calcium 8.5 Corrected Calcium 8.6 Phosphorus 2.0 L Magnesium 1.8 Total Bilirubin 0.5 AST 25 ALT < 7 L Alkaline Phosphatase 121 H Total Protein 5.6 L Albumin 3.9 Globulin 1.7 L Albumin/Globulin Ratio 2.3 H Quality Measures Quality Measures VTE prophylaxis Advance care planning discussed with:: patient Assessment & Plan Assessment Current Active Medications: Generic Name Dose Route Start Last Admin Trade Name Freq PRN Reason Stop Dose Admin Acetaminophen 650 mg 04/16/25 10:27 Acetaminophen 325 Mg Tablet PO 05/13/25 08:14 Q6HR PRN PAIN (1-3) OR FEVER > 100.4 Hydrocodone Bitart/Acetaminophen 1 tab 04/14/25 10:31 04/16/25 12:25 Hydrocodone/Apap 10/325 Tab PO 04/19/25 10:30 1 tab Q6HR PRN Administration PAIN SCALE 4-6 Al Hydrox/Mg Hydrox/Simethicone 30 ml 04/13/25 10:09 04/15/25 01:40 Mg Hyd/Al Hyd/Hanny (Maalox Reg) Susp 30 Ml Udc PO 05/13/25 10:08 30 ml QID PRN Administration UPSET STOMACH/INDIGESTION Dextrose 25 ml 04/13/25 01:47 Dextrose 50%-Water Inj 50 Ml Syringe IV 05/13/25 01:46 Q15MIN PRN BG 50-70 responsive npo pt Dextrose 50 ml 04/13/25 01:47 Dextrose 50%-Water Inj 50 Ml Syringe IV 05/13/25 01:46 Q15MIN PRN BG <50 OR BG <70 & pt unresponsive Docusate Sodium 100 mg 04/15/25 09:00 04/16/25 08:31 Docusate Sod 100 Mg Capsule PO 05/15/25 08:59 100 mg QDAY NAKUL Administration Protocol Gabapentin 300 mg 04/13/25 14:00 04/16/25 06:14 Gabapentin 300 Mg Capsule PO 05/13/25 13:59 Not Given TID NAKUL Glucagon 1 mg 04/13/25 01:47 Glucagon Inj 1 Mg Vial IM Q15MIN PRN BG <70, and no IV access Cefazolin Sodium 2 gm in 100 mls @ 100 mls/hr 04/13/25 16:53 04/16/25 14:29 Ancef 2gm Ivpb IV 04/20/25 16:52 100 mls/hr Q8HR NAKUL Administration Metronidazole 500 mg in 100 mls @ 200 mls/hr 04/13/25 16:53 04/16/25 12:26 Flagyl 500 Mg Iv IV 04/20/25 16:52 200 mls/hr Q6HR NAKUL Administration Sodium Chloride 1,000 mls @ 100 mls/hr 04/13/25 16:53 04/16/25 12:29 Ns IV 05/13/25 16:52 100 mls/hr .Q10H NAKUL Administration Insulin Human Lispro 0 unit 04/13/25 07:30 04/16/25 11:30 Insulin Lispro (Admelog) 1 Unit/0.01 Ml Unit SC 05/13/25 07:29 Not Given ACHS NAKUL Protocol Losartan Potassium 50 mg 04/16/25 09:00 04/16/25 08:31 Losartan Potassium 25 Mg Tablet PO 05/16/25 08:59 50 mg QDAY NAKUL Administration Metoprolol Tartrate 1 mg 04/13/25 15:44 Metoprolol Tartrate Inj 1 Mg/Ml Vial 5 Ml IVP Q5MIN PRN TACHYCARDIA Morphine Sulfate 2 mg 04/14/25 10:31 04/16/25 09:45 Morphine Sulf Inj 4 Mg/Ml Vial IVP 04/18/25 16:52 2 mg Q4HR PRN Administration Pain Scale 7-10(Mod-Sev Ondansetron HCl 4 mg 04/13/25 01:44 04/16/25 03:50 Ondansetron Inj 2 Mg/Ml Inj 2 Ml IVP 05/13/25 01:43 4 mg Q6HR PRN Administration NAUSEA OR VOMITING Protocol Pantoprazole Sodium 40 mg 04/13/25 09:00 04/16/25 08:31 Pantoprazole Inj 40 Mg Vial IVP 05/13/25 08:59 40 mg QDAY NAKUL Administration Simethicone 80 mg 04/15/25 08:20 04/16/25 14:28 Simethicone 80 Mg Chew PO 05/15/25 08:19 80 mg QID PRN Administration GAS Plan Ms. Spencer is a 69-year-old female with a history of hypertension, type II diabetes mellitus, and anxiety who presented to the emergency department with acute on subacute post prandial ruq pain associated with nausea and vomiting and found to have gallstones on US outpatient, likely billiary colic. pt admitted for infectious work up, on lap mike was found to have purulent liquid around liver, abdomen was washed out, and gb removed, continues on iv abx. #Symptomatic cholelithiasis s/p Laproscopic Cholecystectomy and Abdominal washout POD 3 #Biliary Colic #Small Bowel Ileus #Leukocytosis - downtrended Acute on subchronic presentation of RUQ post prandial pain, patient reports having taken NSAIDS regularly for chronic back pain CT Abdo pelvis showed cholelithiasis, liver mildly irregular in contour, no common bile duct or common hepatic duct stone, no bowel obstruction Gallbladder ultrasound showed cholelithiasis, negative for cholecystitis WBC 18, improving Afebrile lipase wnl, no CVA tenderness, 04/13: Diagnostic laparoscopy and removal of omental inflammatory nodules and irrigation of the peritoneal cavity followed by laparoscopic cholecystectomy. Other findings include puralent material in the RUQ, no ruptured appendix was visualized. Plan ? General Surgery consulted, Dr. Parham, appreciate recs ? Clear liquid, advance as tolerated ? Analgesia, [place] 10-325 BID (home med is 7.5) and Morphine 2mg IV q4hr prn ? Maintenance fluid, NS 100 cc/hr ? Cefazolin 2 gm q8hr (04/12- - Metronidazole 500 q6hr (04/13- - Samples were obtained of the inflammatory nodules, Pathology report pending ? Will continue antibiotics and encourage ambulation, monitor for flatus. #GERD #Delayed gastric emptying pt reports lots of gerd symptoms, she states that she last took ozempic in december and then was switched to mounjaro in january. she did not tolerate the medications well and d/c at end of january, she had lots of GI distress from those medications also givn hx of NSAID use for back pain, she may have PUD. Hgb 10.9 from 13 on admission Plan: - Famotidine 20 mg po qd and omeprazole 20 mg po qd. #Acute Normocytic Anemia hgb on admission 13, and on prior labs has been wnl, during current admission hgb 10.9, pt states that she had some blood tinged emesis but no erich blood by mouth she does have cirrhosis, possibly 2/2 NAFLD Hgb stable Plan - Daily CBC - transfuse if <7 - consider GI consult if Hgb continues to downtrend. #Hypokalemia- Resolved Likely in the setting of GI loss Plan - Daily cmp #[id number] type 2 diabetes mellitus Last A1c 6.4 Takes metformin 1 g daily Plan: ?Insulin sliding scale ?Hypoglycemia protocol in place # Primary hypertension - Resumed home losartan 50mg po qd #Chronic Back pain - Takes norco at home 1 tab q8hr #Peripheral Neuropathy - Gabapentin 300 mg TID #Hyperlipidemia - Atorvastatin 40 mg qd #Hypophosphatemia Repleted as indicated Health Maintenance: Diet: Clear liquid diet. GI prophylaxis: Protonix 40 mg daily DVT prophylaxis: SCDs Antibiotics: None CODE STATUS: Full Disposition: MedSur, POD 2 from laparoscopic cholecystectomy. Encouraging ambulation. Assessment and plan discussed with my attending physician Dr. Laurie Reed (PGY-2)- Internal medicine resident Attending Provider Attestation/Addendum I have seen and examined the patient. I was physically present for the valles portions of the services provided including history, physical exam, diagnosis, treatment plans and orders. I agree with assessment and plan of care as documented by residents. Even though this this note was carefully revised there may still be minor errors in manufacturing scheduler due to voice recognition software. Smooth Sullivan MD
--- NOTE | 2025-04-16 18:17 | PD.SURPROG ---
Documentation for date of: 04/16/25 Subjective Subjective Brief History: History of present illness revealed that the patient has been experiencing some pain over the right side of the abdomen under the rib cage for a few months. She was seen by Rosa at [facility] and was ordered to have an ultrasound 1 week ago. Patient was found to have gallstones and she was waiting for the referral to me for surgery. But starting yesterday she had uncontrolled severe pain over the right flank and came to the emergency room and was found to have significant tenderness. She was admitted to the hospital and a CT scan showed some fluid in the liver and gallstones. The ultrasound confirmed the gallstones. Patient's pain is very severe accompanied by exacerbation. She cannot even move and is planning to lie down on the left side and she cannot lie down on the right side. She has had some back pain in the past. Her other medical problem consist of diabetes and hypertension past surgery consisted of knee replacement and carpal tunnel. Patient is also taking gabapentin for her nerve pain in her hands and legs Exam Vital Signs Temp Pulse Resp BP Pulse Ox O2 Del Method O2 Flow Rate 97.4 F 86 18 139/75 H 93 L Room Air 2 04/16/25 15:51 04/16/25 15:51 04/16/25 15:51 04/16/25 15:51 04/16/25 15:51 04/16/25 15:51 04/15/25 11:31 Assessment & Plan Assessment Additional comments: Pression: Patient is passing flatus and her ileus seems to be improving. Patient is anxious to eat some solid food Plan Plan: We shall start her on full liquids and if she tolerates we will advance to solid food. We will DC the IV fluids PROCEDURES: Procedures Diagnostic laparoscopy and removal of omental inflammatory nodules and irrigation of the peritoneal cavity followed by laparoscopic cholecystectomy
[2025-04-16] MEDS: GABAPENTIN 300 MG CAPSULE PO (22:05)
[2025-04-17] VITALS (7 sets, daily range): BP systolic 132–162; BP diastolic 74–98; PULSE 86–97; RESP 18–23; TEMP 36.1–36.8; O2SAT 91–95; BMI 35.8
[2025-04-17] MEDS: metroNIDAZOLE/NS 500 MG IVPB 500 MG/100 ML BAG 200 MG IV ×4 (05:01→23:39)
[2025-04-17] MEDS: GABAPENTIN 300 MG CAPSULE PO ×2 (05:03→14:59)
[2025-04-17] MEDS: SIMETHICONE 80 MG CHEW PO ×3 (05:39→22:25)
[2025-04-17] MEDS: ceFAZolin/D5W 2 GM IV 2 GM/100 ML BAG IV ×3 (05:41→22:25)
[2025-04-17 05:46] LABS: Basophils # (Auto) 0.1 Thou/mm3 (0.0-0.2); Basophils % (Auto) 1 % (0-2.5); Eosinophils # (Auto) 0.0 Thou/mm3 (0.0-0.5); Eosinophils % (Auto) 0 % (0-10); Hematocrit 32.6 % (36.0-46.0); Hemoglobin 10.9 g/dL (12.0-16.0); Immature Granulocytes Auto 0.23 Thou/mm3 (0.00-0.00); Lymphocytes # (Auto) 1.2 Thou/mm3 (1.0-4.8); Lymphocytes % (Auto) 10 % (10-50); Mean Corpuscular HGB Conc 33.4 g/dl (31.0-37.0); Mean Corpuscular Hemoglobin 30.4 pg (25.0-35.0); Mean Corpuscular Volume 91 fL (80-100); Monocytes # (Auto) 1.1 Thou/mm3 (0.0-0.8); Monocytes % (Auto) 8 % (0-12); Neutrophils # (Auto) 10.2 Thou/mm3 (1.8-7.7); Neutrophils % (Auto) 80 % (37-80); Nucleated Red Blood Cell # 0.00 Thou/mm3 (0.00-0.00); Nucleated Red Blood Cell % 0 /100 WBC (0); Platelet Count 247 Thou/mm3 (140-440); RDW Standard Deviation 43.5 fL (36.4-46.3); Red Blood Count 3.58 Miln/mm3 (4.00-5.20); White Blood Count 12.8 Thou/mm3 (3.6-11.0)
[2025-04-17 06:18] LABS: Alanine Aminotransferase < 7 U/L (10-49); Albumin, Serum 3.7 gm/dL (3.4-4.8); Albumin/Globulin Ratio 2.1 (1.2-2.2); Alkaline Phosphatase 142 U/L (46-116); Anion Gap 9 (7-16); Aspartate Amino Transferase 34 U/L (0-34); BUN/Creatinine Ratio 14 Ratio (12-20); Bilirubin,Total 0.5 mg/dL (0.3-1.2); Blood Urea Nitrogen 7 mg/dL (9-23); Calcium 8.4 mg/dL (8.3-10.6); Calcium (Corrected) 8.6 mg/dL (8.5-10.1); Carbon Dioxide 27.7 mMol/L (20.0-31.0); Chloride 102 mMol/L (98-107); Creatinine (Component) 0.5 mg/dL (0.6-1.3); Estimated Creatinine Clearance 102.6 mL/min (>60); Globulin 1.8 gm/dL (2.3-3.5); Glucose 127 mg/dL (74-106); Magnesium 2.1 mg/dL (1.6-2.6); Osmolality,Calculated 277 (275-295); Phosphorous 2.4 mg/dL (2.4-5.1); Potassium 3.4 mMol/L (3.4-5.1); Sodium 139 mMol/L (136-145); Total Protein 5.5 gm/dL (5.7-8.2); eGFR > 60 See Note
[2025-04-17] MEDS: MORPHINE SULF INJ 4 MG/ML VIAL 2 MG IVP ×2 (07:34→12:57)
[2025-04-17] MEDS: DOCUSATE SOD 100 MG CAPSULE PO (08:11)
[2025-04-17] MEDS: LOSARTAN POTASSIUM 25 MG TABLET 50 MG PO (08:11)
--- NOTE | 2025-04-17 09:42 | XR_ITS ---
Examination: CT abdomen with intravenous contrast CT pelvis with intravenous contrast 2-D coronal reconstructions 2-D sagittal reconstructions Date and time of exam: April 17, 2025, 1155 hours INDICATIONS: Abdominal pain months, cirrhosis, ascites, cholelithiasis on CT abdomen pelvis April 12, 2025 CTDI: vol (mGy) 12.6 DLP: (mGycm) 680 Technique: Multiple axial sections of the abdomen and pelvis have been obtained. 64 slice high-resolution scanner used. 3 mm axial sections have been obtained, post intravenous injection 60 cc Isovue 370 2-D sagittal, coronal reconstructions obtained. Low dose protocols were performed. One or more of the following dose reduction techniques were used; automated exposure control, adjustment of the mA and/or KV according to patient size, use of iterative reconstruction technique. Findings: Liver irregular in contour with diffuse fatty infiltration no focal liver lesions Anasarca Mild ascites Absent gallbladder No pancreatic mass No renal or ureteral calculi, no hydronephrosis Aorta normal size Small lymph nodes in the right lower mesentery No bowel obstruction Colonic diverticulosis Urinary bladder intact Absent uterus Severe osteopenia advanced disc narrowing L4-L5 with grade 1 anterolisthesis, advanced disc narrowing L5-S1 IMPRESSION: Cirrhosis Anasarca Mild ascites No extrahepatic biliary tract dilatation
--- NOTE | 2025-04-17 11:23 | PC.SS ---
Rounding: Advance diet as tolerated. DC plan home.
--- NOTE | 2025-04-17 13:48 | ESPR_ITS ---
<Statement entered by Carl Matt MD - 04/17/25 14:54> No acute events overnight. Seen and examined at bedside and patient states that she continues to experience abdominal pain that is worse when she eats. General surgery also evaluated this morning and given abdominal pain CT A/P was ordered and showed irregular liver contour with diffuse fatty liver infiltration, anasarca, ascites, absent gallbladder but no acute pathology is noted. Later on in the day patient symptoms had improved significantly and will touch base with general surgery regarding advancement in her diet. Otherwise, she continues to be on IV antibiotics, has been afebrile, leukocytosis improving, and hemoglobin has been stable. Anticipate discharge in next 24 to 48 hours. ----- Note reviewed and agree with care plan as documented. Please refer to the note below for further details. Plan discussed with attending physician Dr. Laurie Matt MD PGY-2 Internal Medicine Documentation for date of: 04/17/25 Subjective Subjective Interval history: No acute events overnight. Patient was seen and examined at bedside. The patient reported significant improvement in abdominal pain and had a small, hard bowel movement this morning. The patient is passing gas regularly and denies any nausea or vomiting. Glycerin suppository ordered for constipation. Vitals are stable, with the exception of blood pressure at 155/78, but the patient is saturating well on room air. Lab results show a hemoglobin of 10.1 and a hematocrit of 32.6, consistent with yesterday's values. The WBC count is 12.8, indicating improvement. Alkaline phosphatase is elevated at 142. K 3.4 - repleted wIth 40 meq KCL PO Surgical consultation is recommended, as the patient is no longer experiencing significant abdominal pain or discomfort. An abdominal/pelvic CT was performed, revealing cirrhosis, anasarca, mild ascites, severe osteopenia, and advanced disc narrowing at L4-L5 with grade [address] Parham plans to advance the patient to a regular diet. Exam Vital Signs Temp Pulse Resp BP Pulse Ox O2 Del Method O2 Flow Rate 97.0 F 97 23 H 162/86 H 94 L Room Air 2 04/17/25 08:00 04/17/25 08:11 04/17/25 08:00 04/17/25 08:11 04/17/25 08:00 04/17/25 08:00 04/15/25 11:31 Narrative Exam General: Alert, no acute distress.Conversational and non-toxic appearing. Skin: Warm, dry, intact. No rash or ecchymoses. Head: Normocephalic, atraumatic. Eye: Normal conjunctiva, PERRL. Throat: Oral mucosa moist. No obvious lesions in oropharynx. Cardiovascular: Regular rate and rhythm, no murmur, +S1/S2. Respiratory: Lungs are clear to auscultation, respirations unlabored, no crackles, no wheezing. Gastrointestinal: Soft, mildly tender and distended. No guarding or rebound tenderness. Extremities: No edema, no cyanosis, no clubbing. Neuro: Alert and oriented x3.No focal deficits observed. Conversant, moving all extremities. No overt cerebellar signs/incoordination. Psychiatric: Cooperative, appropriate affect Objective Labs 04/17/25 05:14 04/17/25 05:14 Labs: Laboratory Results - last 24 hr 04/17/25 05:14 WBC 12.8 H RBC 3.58 L Hgb 10.9 L Hct 32.6 L MCV 91 MCH 30.4 MCHC 33.4 RDW Std Deviation 43.5 Plt Count 247 Neut % (Auto) 80 Lymph % (Auto) 10 [place] % (Auto) 8 Eos % (Auto) 0 Baso % (Auto) 1 Neut # (Auto) 10.2 H Lymph # (Auto) 1.2 [place] # (Auto) 1.1 H Eos # (Auto) 0.0 Baso # (Auto) 0.1 Immature Gran # (Auto) 0.23 H Absolute Nucleated RBC 0.00 Immature Gran % 2 H Nucleated RBC % 0 Sodium 139 Potassium 3.4 Chloride 102 Carbon Dioxide 27.7 Anion Gap 9 BUN 7 L Creatinine 0.5 L Estim Creat Clear Calc 102.6 eGFR > 60 BUN/Creatinine Ratio 14 Glucose 127 H Calculated Osmolality 277 Calcium 8.4 Corrected Calcium 8.6 Phosphorus 2.4 Magnesium 2.1 Total Bilirubin 0.5 AST 34 ALT < 7 L Alkaline Phosphatase 142 H D Total Protein 5.5 L Albumin 3.7 Globulin 1.8 L Albumin/Globulin Ratio 2.1 Quality Measures Quality Measures VTE prophylaxis Advance care planning discussed with:: patient Assessment & Plan Assessment Current Active Medications: Generic Name Dose Route Start Last Admin Trade Name Freq PRN Reason Stop Dose Admin Acetaminophen 650 mg 04/16/25 10:27 Acetaminophen 325 Mg Tablet PO 05/13/25 08:14 Q6HR PRN PAIN (1-3) OR FEVER > 100.4 Hydrocodone Bitart/Acetaminophen 1 tab 04/14/25 10:31 04/17/25 10:13 Hydrocodone/Apap 10/325 Tab PO 04/19/25 10:30 1 tab Q6HR PRN Administration PAIN SCALE 4-6 Al Hydrox/Mg Hydrox/Simethicone 30 ml 04/13/25 10:09 04/15/25 01:40 Mg Hyd/Al Hyd/Hanny (Maalox Reg) Susp 30 Ml Udc PO 05/13/25 10:08 30 ml QID PRN Administration UPSET STOMACH/INDIGESTION Dextrose 25 ml 04/13/25 01:47 Dextrose 50%-Water Inj 50 Ml Syringe IV 05/13/25 01:46 Q15MIN PRN BG 50-70 responsive npo pt Dextrose 50 ml 04/13/25 01:47 Dextrose 50%-Water Inj 50 Ml Syringe IV 05/13/25 01:46 Q15MIN PRN BG <50 OR BG <70 & pt unresponsive Docusate Sodium 100 mg 04/15/25 09:00 04/17/25 08:11 Docusate Sod 100 Mg Capsule PO 05/15/25 08:59 100 mg QDAY NAKUL Administration Protocol Gabapentin 300 mg 04/13/25 14:00 04/17/25 05:03 Gabapentin 300 Mg Capsule PO 05/13/25 13:59 300 mg TID NAKUL Administration Glucagon 1 mg 04/13/25 01:47 Glucagon Inj 1 Mg Vial IM Q15MIN PRN BG <70, and no IV access Cefazolin Sodium 2 gm in 100 mls @ 100 mls/hr 04/13/25 16:53 04/17/25 05:41 Ancef 2gm Ivpb IV 04/20/25 16:52 100 mls/hr Q8HR NAKUL Administration Metronidazole 500 mg in 100 mls @ 200 mls/hr 04/13/25 16:53 04/17/25 12:57 Flagyl 500 Mg Iv IV 04/20/25 16:52 200 mls/hr Q6HR NAKUL Administration Insulin Human Lispro 0 unit 04/13/25 07:30 04/17/25 12:51 Insulin Lispro (Admelog) 1 Unit/0.01 Ml Unit SC 05/13/25 07:29 Not Given ACHS NAKUL Protocol Losartan Potassium 50 mg 04/16/25 09:00 04/17/25 08:11 Losartan Potassium 25 Mg Tablet PO 05/16/25 08:59 50 mg QDAY NAKUL Administration Metoprolol Tartrate 1 mg 04/13/25 15:44 Metoprolol Tartrate Inj 1 Mg/Ml Vial 5 Ml IVP Q5MIN PRN TACHYCARDIA Morphine Sulfate 2 mg 04/14/25 10:31 04/17/25 12:57 Morphine Sulf Inj 4 Mg/Ml Vial IVP 04/18/25 16:52 2 mg Q4HR PRN Administration Pain Scale 7-10(Mod-Sev Ondansetron HCl 4 mg 04/13/25 01:44 04/16/25 03:50 Ondansetron Inj 2 Mg/Ml Inj 2 Ml IVP 05/13/25 01:43 4 mg Q6HR PRN Administration NAUSEA OR VOMITING Protocol Pantoprazole Sodium 40 mg 04/13/25 09:00 04/17/25 08:11 Pantoprazole Inj 40 Mg Vial IVP 05/13/25 08:59 40 mg QDAY NAKUL Administration Simethicone 80 mg 04/15/25 08:20 04/17/25 05:39 Simethicone 80 Mg Chew PO 05/15/25 08:19 80 mg QID PRN Administration GAS Plan Ms. Spencer is a 69-year-old female with a history of hypertension, type II diabetes mellitus, and anxiety who presented to the emergency department with acute on subacute post prandial ruq pain associated with nausea and vomiting and found to have gallstones on US outpatient, likely billiary colic. pt admitted for infectious work up, on lap mike was found to have purulent liquid around liver, abdomen was washed out, and gb removed, continues on iv abx. #Symptomatic cholelithiasis s/p Laproscopic Cholecystectomy and Abdominal washout POD 4 #Biliary Colic #Small Bowel Ileus #Leukocytosis - downtrending Acute on subchronic presentation of RUQ post prandial pain, patient reports having taken NSAIDS regularly for chronic back pain CT Abdo pelvis showed cholelithiasis, liver mildly irregular in contour, no common bile duct or common hepatic duct stone, no bowel obstruction Gallbladder ultrasound showed cholelithiasis, negative for cholecystitis WBC 12.8, improving. Afebrile. lipase wnl, no CVA tenderness, 04/13: Diagnostic laparoscopy and removal of omental inflammatory nodules and irrigation of the peritoneal cavity followed by laparoscopic cholecystectomy. Other findings include puralent material in the RUQ, no ruptured appendix was visualized. 04/17: Abdominal/pelvic CT was performed, revealing cirrhosis, anasarca, mild ascites, severe osteopenia, and advanced disc narrowing at L4-L5 with grade 1 anterolisthesis. Plan ? General Surgery consulted, plan to advanced to regular diet ? Pain regimen: [place] 10-325 q6h prn (home med is 7.5) and Morphine 2mg IV q4hr prn ? Cefazolin 2 gm q8hr (04/12- ? Metronidazole 500 q6hr (04/13- ? Samples were obtained of the inflammatory nodules, pathology report pending ? Will continue antibiotics and encourage ambulation, monitor for flatus #GERD #Delayed gastric emptying pt reports lots of gerd symptoms, she states that she last took ozempic in december and then was switched to mounjaro in january. she did not tolerate the medications well and d/c at end of january, she had lots of GI distress from those medications also givn hx of NSAID use for back pain, she may have PUD. Hgb 10.9 from 13 on admission - Famotidine 20 mg po qd and omeprazole 20 mg po qd ( home meds) Plan: ? Protonix 40 mg IVP qday #Acute normocytic anemia hgb on admission 13, and on prior labs has been wnl, during current admission hgb 10.9, pt states that she had some blood tinged emesis but no erich blood by mouth she does have cirrhosis, possibly 2/2 NAFLD Hgb stable Plan ? Daily CBC ? Transfuse if <7 #Hypokalemia, resolved Likely in the setting of GI loss K 3.4 - repleted wth 40 meq KCL PO Plan ? Daily cmp #Hmu-drcrdaq-brcsmugen type 2 diabetes mellitus Last A1c 6.4 Takes metformin 1 g daily Plan: ? Insulin sliding scale ? Hypoglycemia protocol in place # Primary hypertension ? Resumed home losartan 50mg po qd #Chronic Back pain ? Takes norco at home 1 tab q8hr #Peripheral Neuropathy ? Gabapentin 300 mg TID #Hyperlipidemia ? Atorvastatin 40 mg qd #Hypophosphatemia ? Repleted as indicated #CT findings of cirrhosis and mild ascites Liver irregular in contour with diffuse fatty infiltration no focal liver. Cr anf GFR wnl.T.reyna normal ? No acute intervention at this moment continue, continue to monitor Health Maintenance: Diet: Clear liquid diet, advancing per surgery GI prophylaxis: Protonix 40 mg daily DVT prophylaxis: SCDs Antibiotics: cefazolin and flagyl CODE STATUS: Full Disposition: [facility], POD 4 from laparoscopic cholecystectomy. Encouraging ambulation. Patient seen and assessed under supervision of attending physician Dr. Sullivan and discuss with senior resident Dr. Balta Matt PGY-2 Kathleen Multani MD PGY-1, Internal Medicine Please note: this document was transcribed using voice recognition technology; minor inaccuracies may be present. Attending Provider Attestation/Addendum I have seen and examined the patient. I was physically present for the valles portions of the services provided including history, physical exam, diagnosis, treatment plans and orders. I agree with assessment and plan of care as documented by residents. Patient seen and examined at bedside this morning. No acute overnight events. Vital signs are stable. She has been passing gas and had a small bowel movement this morning following which she had some improvement in the pain. But later she started having pain again when she ambulated. CTA abdomen/pelvis was obtained, showed cirrhosis, anasarca, mild ascites but no abscess. Discussed with general surgery, we will start patient on solid diet, and encourage ambulation, appreciate recommendations. Continues to be on IV antibiotics per intra-abdominal infection. We will also try suppository. WBC count has been downtrending. Chemistry panel remains stable. Even though this this note was carefully revised there may still be minor errors in train operator due to voice recognition software. Smooth Sullivan MD
[2025-04-17] MEDS: GLYCERIN, ADULT 1 EA SUPP 1 EACH PR (17:27)
[2025-04-17] MEDS: HYDROmorphone INJ 2 MG/ML VIAL 0.5 MG IVP (20:32)
[2025-04-17] MEDS: ONDANSETRON INJ 2 MG/ML INJ 2 ML 4 MG IVP (20:47)
[2025-04-18] VITALS: BP 137/85; PULSE 88; RESP 19; TEMP 36.6; O2SAT 95
[2025-04-18] MEDS: HYDROmorphone INJ 2 MG/ML VIAL 0.5 MG IVP ×3 (01:03→14:04)
[2025-04-18 04:00] VITALS: BP 145/78; PULSE 91; RESP 19; TEMP 36.1; O2SAT 95
[2025-04-18] MEDS: SIMETHICONE 80 MG CHEW PO ×2 (04:26→11:29)
[2025-04-18] MEDS: ceFAZolin/D5W 2 GM IV 2 GM/100 ML BAG IV ×2 (05:27→13:55)
[2025-04-18] MEDS: metroNIDAZOLE/NS 500 MG IVPB 500 MG/100 ML BAG 200 MG IV ×2 (05:27→11:29)
[2025-04-18] MEDS: GABAPENTIN 300 MG CAPSULE PO ×2 (05:27→13:55)
[2025-04-18 06:26] LABS: Basophils # (Auto) 0.1 Thou/mm3 (0.0-0.2); Basophils % (Auto) 1 % (0-2.5); Eosinophils # (Auto) 0.1 Thou/mm3 (0.0-0.5); Eosinophils % (Auto) 1 % (0-10); Hematocrit 32.2 % (36.0-46.0); Hemoglobin 10.8 g/dL (12.0-16.0); Immature Granulocytes Auto 0.53 Thou/mm3 (0.00-0.00); Lymphocytes # (Auto) 1.3 Thou/mm3 (1.0-4.8); Lymphocytes % (Auto) 10 % (10-50); Mean Corpuscular HGB Conc 33.5 g/dl (31.0-37.0); Mean Corpuscular Hemoglobin 30.4 pg (25.0-35.0); Mean Corpuscular Volume 91 fL (80-100); Monocytes # (Auto) 1.1 Thou/mm3 (0.0-0.8); Monocytes % (Auto) 8 % (0-12); Neutrophils # (Auto) 10.2 Thou/mm3 (1.8-7.7); Neutrophils % (Auto) 77 % (37-80); Nucleated Red Blood Cell # 0.00 Thou/mm3 (0.00-0.00); Nucleated Red Blood Cell % 0 /100 WBC (0); Platelet Count 266 Thou/mm3 (140-440); RDW Standard Deviation 44.1 fL (36.4-46.3); Red Blood Count 3.55 Miln/mm3 (4.00-5.20); White Blood Count 13.3 Thou/mm3 (3.6-11.0)
[2025-04-18 08:00] VITALS: BP 140/96; PULSE 91; RESP 24; TEMP 36.2; O2SAT 93
[2025-04-18 08:09] LABS: Alanine Aminotransferase < 7 U/L (10-49); Albumin, Serum 3.6 gm/dL (3.4-4.8); Alkaline Phosphatase 173 U/L (46-116); Anion Gap 8 (7-16); Aspartate Amino Transferase 32 U/L (0-34); BUN/Creatinine Ratio 14 Ratio (12-20); Bilirubin,Total 0.5 mg/dL (0.3-1.2); Blood Urea Nitrogen 7 mg/dL (9-23); Calcium 8.5 mg/dL (8.3-10.6); Calcium (Corrected) 8.8 mg/dL (8.5-10.1); Carbon Dioxide 29.6 mMol/L (20.0-31.0); Chloride 100 mMol/L (98-107); Creatinine (Component) 0.5 mg/dL (0.6-1.3); Estimated Creatinine Clearance 100.3 mL/min (>60); Glucose 166 mg/dL (74-106); Magnesium 1.6 mg/dL (1.6-2.6); Osmolality,Calculated 277 (275-295); Phosphorous 2.1 mg/dL (2.4-5.1); Potassium 3.8 mMol/L (3.4-5.1); Sodium 138 mMol/L (136-145); eGFR > 60 See Note
[2025-04-18 08:30] VITALS: BP 140/96; PULSE 91
[2025-04-18] MEDS: LOSARTAN POTASSIUM 25 MG TABLET 50 MG PO (08:30)
[2025-04-18] MEDS: DOCUSATE SOD 100 MG CAPSULE PO (08:30)
--- NOTE | 2025-04-18 09:38 | PD.SURPROG ---
Documentation for date of: 04/18/25 Subjective Subjective Brief History: History of present illness revealed that the patient has been experiencing some pain over the right side of the abdomen under the rib cage for a few months. She was seen by Rosa at [facility] and was ordered to have an ultrasound 1 week ago. Patient was found to have gallstones and she was waiting for the referral to me for surgery. But starting yesterday she had uncontrolled severe pain over the right flank and came to the emergency room and was found to have significant tenderness. She was admitted to the hospital and a CT scan showed some fluid in the liver and gallstones. The ultrasound confirmed the gallstones. Patient's pain is very severe accompanied by exacerbation. She cannot even move and is planning to lie down on the left side and she cannot lie down on the right side. She has had some back pain in the past. Her other medical problem consist of diabetes and hypertension past surgery consisted of knee replacement and carpal tunnel. Patient is also taking gabapentin for her nerve pain in her hands and legs Narrative: The patient is feeling better today and was able to lie down and sleep. The right-sided abdominal pain seems to have decreased but she has still not had any bowel movement Exam Vital Signs Temp Pulse Resp BP Pulse Ox O2 Del Method O2 Flow Rate 97.2 F 91 24 H 140/96 H 93 L Room Air 2 04/18/25 08:00 04/18/25 08:30 04/18/25 08:00 04/18/25 08:30 04/18/25 08:00 04/18/25 08:00 04/15/25 11:31 Vital signs are normal Routine Abdominal Exam Comments: Abdominal exam shows bowel sounds. Patient has developed some redness below the umbilical incision and may be developing wound infection. Results Results: Laboratory Laboratory Narrative: Laboratory exam shows mild leukocytosis Assessment & Plan Assessment Additional comments: Impression: Slow recovery following laparoscopic cholecystectomy and drainage of the intra-abdominal abscess Plan Plan: Patient could be discharged on oral antibiotics and I will follow her in my office in 1 week PROCEDURES: Procedures Diagnostic laparoscopy and removal of omental inflammatory nodules and irrigation of the peritoneal cavity followed by laparoscopic cholecystectomy
[2025-04-18] MEDS: LACTULOSE SYRUP 20 GM/30 ML UDC PO (09:57)
[2025-04-18] MEDS: NAPH,KPH MBDB 1 PACKET (1.5 GM) PO (09:58)
--- NOTE | 2025-04-18 10:39 | PD.RESDS ---
Planned Discharge Date 04/18/25 DS: Providers Provider Date of admission: 04/13/25 00:24 Primary care physician: Rosa Ku PA-C Admitting Provider: Renate Gomez MD Attending Provider on Admission: Aidee Restrepo DO Consults: 04/12/25 21:30 Consult to General Surgery Stat Comment: Consulting Provider: Vance Ball Attending Provider on DC: Kathleen Multani MD Discharging Provider: Kathleen Multani MD Hospital Course Hospital Course Hospital course: No acute events overnight. Patient was seen and examined at bedside. The patient reported significant improvement in abdominal pain and had a small, hard bowel movement this morning. The patient is passing gas regularly and denies any nausea or vomiting. Glycerin suppository ordered for constipation. Vitals are stable, with the exception of blood pressure at 155/78, but the patient is saturating well on room air. Lab results show a hemoglobin of 10.1 and a hematocrit of 32.6, consistent with yesterday's values. The WBC count is 12.8, indicating improvement. Alkaline phosphatase is elevated at 142. K 3.4 - repleted wIth 40 meq KCL PO Surgical consultation is recommended, as the patient is no longer experiencing significant abdominal pain or discomfort. An abdominal/pelvic CT was performed, revealing cirrhosis, anasarca, mild ascites, severe osteopenia, and advanced disc narrowing at L4-L5 with grade [address] Parham plans to advance the patient to a regular diet. Time Spent with Patient Time attestation: Total time spent providing and/or coordinating discharge services: Exam Vital Signs Temp Pulse Resp BP Pulse Ox O2 Del Method O2 Flow Rate 97.2 F 91 24 H 140/96 H 93 L Room Air 2 04/18/25 08:00 04/18/25 08:30 04/18/25 08:00 04/18/25 08:30 04/18/25 08:00 04/18/25 08:00 04/15/25 11:31 Discharge Plan Plan Patient Disposition: HOME (Self Care) Patient condition on transfer: Stable Care Plan Goals: ? Continue taking all other home medications as prescribed ? Follow-up with PCP within 1-2 weeks of discharge ? If you do not have a PCP, you can follow-up at the [facility] (you can call [phone] to make an appointment) ? Return to ED if symptoms worsen or recur Prescriptions/Referrals Prescriptions/Med Rec: New ciprofloxacin HCl 500 mg tablet 500 mg PO BID 6 Days Qty: 12 0RF metronidazole 500 mg tablet 500 mg PO Q8H 6 Days Qty: 18 0RF Continued metformin 500 mg Tablet 1,000 mg PO QDAY hydrocodone-acetaminophen 7.5-325 mg Tablet 1 tab PO Q8H PRN (Reason: Pain) atorvastatin 40 mg Tablet 40 mg PO QDAY hydrochlorothiazide 25 mg Tablet 25 mg PO QDAY atenolol [Tenormin] 50 mg Tablet 50 mg PO QDAY gabapentin 300 mg capsule 300 mg PO TID famotidine 20 mg tablet 20 mg PO QDAY omeprazole 20 mg capsule,delayed release(DR/EC) 20 mg PO QDAY losartan 50 mg tablet 50 mg PO QDAY Referrals: Rosa Ku PA-C [Primary Care Provider, Family Practice] Patient/Caregiver Discharge Instructions Education Materials: Preventing Surgical Site Infections Print Language: Persian Activity Restrictions/Additional Instructions: Please give appointment to my office on Thursday, April 26 for a follow-up. My office is [address]. Please call [phone] for an appointment time Stand Alone Forms: Rosalba Award Info., Patient Portal Info Letter
[2025-04-18 12:00] VITALS: BP 144/87; PULSE 90; RESP 22; TEMP 36.1; O2SAT 93
--- NOTE | 2025-04-18 13:03 | PD.ONCCONS ---
HPI Data of Consult Consult date: 04/18/25 Requesting Physician: Aidee Restrepo DO Primary Care Provider: Rosa Ku PA-C Consult Narrative Reason for consult: Adenocarcinoma abdominal region. History of present illness: Patient is a 69-year-old lady who was admitted through the ER with complaints of right upper quadrant abdominal pain associate with nausea vomiting. CT scan abdomen pelvis 04/12/2025 revealed cholelithiasis mild ascites cirrhosis no common bile duct or common hepatic stones. Ultrasound of the abdomen also revealed cholelithiasis. Elevated white count of 17.6, 90% neutrophils. Alk phos elevated 203 with AST ALT bili that was not elevated. On 04/13/2025 patient underwent diagnostic laparoscopy for symptomatic cholelithiasis and inflammatory purulent material and omental nodules went biopsy reportedly revealed adenocarcinoma. Patient now referred for oncological consultation. Repeat CT yesterday 04/17/2025 revealed cirrhosis anasarca mild ascites. There was absence of uterus, and no obvious malignant tumor seen. pathology re cc:: cc: Aidee Restrepo DO Past Medical History Social History SOCIAL: Patient has 40 pack history of smoking denies alcohol use Past Medical History Comments PMH COMMENT: History of prior hysterectomy ear surgery hypertension type 2 diabetes carpal tunnel and shoulder surgeries Meds Home Medications and Allergies Home Medications ?Medication ?Instructions ?Recorded ?Confirmed ?Type atenolol 50 mg tablet (Tenormin) 50 mg PO QDAY 07/08/19 04/13/25 History atorvastatin 40 mg tablet 40 mg PO QDAY 07/08/19 04/13/25 History hydrochlorothiazide 25 mg tablet 25 mg PO QDAY 07/08/19 04/13/25 History metformin 500 mg tablet 1,000 mg PO QDAY 06/14/20 04/13/25 History hydrocodone 7.5 mg-acetaminophen 1 tab PO Q8H PRN Pain 09/13/20 04/13/25 History 325 mg tablet famotidine 20 mg tablet 20 mg PO QDAY 04/13/25 04/13/25 History gabapentin 300 mg capsule 300 mg PO TID Nerve pain in my 04/13/25 04/13/25 History hands losartan 50 mg tablet 50 mg PO QDAY 04/13/25 04/13/25 History omeprazole 20 mg capsule,delayed 20 mg PO QDAY 04/13/25 04/13/25 History release Allergies Allergy/AdvReac Type Severity Reaction Status Date / Time lisinopril Allergy Mild Cough Verified 10/08/20 13:02 Exam Vital Signs Temp Pulse Resp BP Pulse Ox O2 Del Method O2 Flow Rate 97.2 F 91 24 H 140/96 H 93 L Room Air 2 04/18/25 08:00 04/18/25 08:30 04/18/25 08:00 04/18/25 08:30 04/18/25 08:00 04/18/25 08:00 04/15/25 11:31 Narrative Exam Appearing comfortable answering questions appropriately. Results Labs 04/18/25 04:45 04/18/25 04:45 Labs: Short CBC 04/18/25 Range/Units 04:45 WBC 13.3 H (3.6-11.0) Thou/mm3 Hgb 10.8 L (12.0-16.0) g/dL Hct 32.2 L (36.0-46.0) % Plt Count 266 (140-440) Thou/mm3 BMP 04/18/25 04:45 Sodium 138 Potassium 3.8 Chloride 100 Carbon Dioxide 29.6 BUN 7 L Creatinine 0.5 L Glucose 166 H Calcium 8.5 Liver Function 04/18/25 Range/Units 04:45 Total Bilirubin 0.5 (0.3-1.2) mg/dL AST 32 (0-34) U/L ALT < 7 L (10-49) U/L Alkaline Phosphatase 173 H D (46-116) U/L Albumin 3.6 (3.4-4.8) gm/dL Assessment and Plan Additional Assessment & Plan Additional Plan: 1. Status post laparoscopy cholecystectomy for gallstones and abdominal pain. Purulent material with inflammatory nodules with biopsy reportedly revealing adenocarcinoma. 2. Patient reportedly will be scheduled for colonoscopy soon once surgical wounds heal. 3. Ordered common tumor markers CEA CA 19?9 CA125 CA 15-3. 4. Gave patient information regarding referral to the cancer treatment center. 5. Review of pathology, staging completion, and patient will be referred to medical oncologist Dr. Arellano. 5. Thank you for allowing me to evaluate this patient
--- NOTE | 2025-04-18 13:06 | ESPR_ITS ---
<Statement entered by Carl Matt MD - 04/18/25 16:30> No acute overnight events. Seen and examined at bedside and patient states that she feels her abdominal pain has overall improved but is now starting to feel more of her chronic pains prior to admission. Biopsy report confirmed mucinous adenocarcinoma but cannot differentiate at this time between primary gynecological or GI source. Thus, oncology was consulted who ordered tumor markers and will refer medical oncologist, Dr. Arellano, for further evaluation and management. From general surgery standpoint patient can be discharged and since she is been evaluated by oncology, vital signs are stable, labs are also stable, she is deemed ready for discharge. Please see DC summary for further details. ----- Note reviewed and agree with care plan as documented. Please refer to the note below for further details. Plan discussed with attending physician Dr. Kaye Matt MD PGY-2 Internal Medicine Documentation for date of: 04/18/25 Subjective Subjective Interval history: No acute events overnight. Per daughter at bedside patient was able to rest comfortably.. Today patient was seen and examined at the bedside. In the morning she reports that abdominal pain significantly improved when she is able to tolerate solid food. During midday rounds, the patient reported experiencing abdominal discomfort and mentioned that she is now able to feel her chronic back pain again. Spoke to pathology Dr. 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 She also mentioned that she would go more specific test and strain to detect the specificity. Consult oncology Dr. Ware, will follow-up with the patient. Give the patient lactulose x1, and restarted senna and MiraLAX for bowel regimen. Repleted phosphorus (2.1) with 1 packet Neutra-Phos. Exam Vital Signs Temp Pulse Resp BP Pulse Ox O2 Del Method O2 Flow Rate 97.2 F 91 24 H 140/96 H 93 L Room Air 2 04/18/25 08:00 04/18/25 08:30 04/18/25 08:00 04/18/25 08:30 04/18/25 08:00 04/18/25 08:00 04/15/25 11:31 Narrative Exam General: Alert, no acute distress.Sad affect after the event the pathology result. Skin: Warm, dry, intact. No rash or ecchymoses. Head: Normocephalic, atraumatic. Eye: Normal conjunctiva, PERRL. Throat: Oral mucosa moist. No obvious lesions in oropharynx. Cardiovascular: Regular rate and rhythm, no murmur, +S1/S2. Respiratory: Lungs are clear to auscultation, respirations unlabored, no crackles, no wheezing. Gastrointestinal: Soft, nontender, non-distended. No guarding or rebound tenderness. Extremities: No edema, no cyanosis, no clubbing. Neuro: Alert and oriented x3.No focal deficits observed. Conversant, moving all extremities. No overt cerebellar signs/incoordination. Psychiatric: Cooperative, sad affect Objective Labs 04/18/25 04:45 04/18/25 04:45 Labs: Laboratory Results - last 24 hr 04/18/25 04:45 WBC 13.3 H RBC 3.55 L Hgb 10.8 L Hct 32.2 L MCV 91 MCH 30.4 MCHC 33.5 RDW Std Deviation 44.1 Plt Count 266 Neut % (Auto) 77 Lymph % (Auto) 10 [place] % (Auto) 8 Eos % (Auto) 1 Baso % (Auto) 1 Neut # (Auto) 10.2 H Lymph # (Auto) 1.3 [place] # (Auto) 1.1 H Eos # (Auto) 0.1 Baso # (Auto) 0.1 Immature Gran # (Auto) 0.53 H Absolute Nucleated RBC 0.00 Immature Gran % 4 H Nucleated RBC % 0 Sodium 138 Potassium 3.8 Chloride 100 Carbon Dioxide 29.6 Anion Gap 8 BUN 7 L Creatinine 0.5 L Estim Creat Clear Calc 100.3 eGFR > 60 BUN/Creatinine Ratio 14 Glucose 166 H Calculated Osmolality 277 Calcium 8.5 Corrected Calcium 8.8 Phosphorus 2.1 L Magnesium 1.6 Total Bilirubin 0.5 AST 32 ALT < 7 L Alkaline Phosphatase 173 H D Albumin 3.6 Quality Measures Quality Measures VTE prophylaxis Advance care planning discussed with:: patient and child Assessment & Plan Assessment Current Active Medications: Generic Name Dose Route Start Last Admin Trade Name Freq PRN Reason Stop Dose Admin Acetaminophen 650 mg 04/16/25 10:27 Acetaminophen 325 Mg Tablet PO 05/13/25 08:14 Q6HR PRN PAIN (1-3) OR FEVER > 100.4 Hydrocodone Bitart/Acetaminophen 1 tab 04/14/25 10:31 04/18/25 11:28 Hydrocodone/Apap 10/325 Tab PO 04/19/25 10:30 1 tab Q6HR PRN Administration PAIN SCALE 4-6 Al Hydrox/Mg Hydrox/Simethicone 30 ml 04/13/25 10:09 04/15/25 01:40 Mg Hyd/Al Hyd/Hanny (Maalox Reg) Susp 30 Ml Udc PO 05/13/25 10:08 30 ml QID PRN Administration UPSET STOMACH/INDIGESTION Dextrose 25 ml 04/13/25 01:47 Dextrose 50%-Water Inj 50 Ml Syringe IV 05/13/25 01:46 Q15MIN PRN BG 50-70 responsive npo pt Dextrose 50 ml 04/13/25 01:47 Dextrose 50%-Water Inj 50 Ml Syringe IV 05/13/25 01:46 Q15MIN PRN BG <50 OR BG <70 & pt unresponsive Docusate Sodium 100 mg 04/15/25 09:00 04/18/25 08:30 Docusate Sod 100 Mg Capsule PO 05/15/25 08:59 100 mg QDAY NAKUL Administration Protocol Gabapentin 300 mg 04/13/25 14:00 04/18/25 05:27 Gabapentin 300 Mg Capsule PO 05/13/25 13:59 300 mg TID NAKUL Administration Glucagon 1 mg 04/13/25 01:47 Glucagon Inj 1 Mg Vial IM Q15MIN PRN BG <70, and no IV access Hydromorphone HCl 0.5 mg 04/17/25 17:06 04/18/25 07:27 Hydromorphone Inj 2 Mg/Ml Vial IVP 04/22/25 17:05 0.5 mg Q4HR PRN Administration PAIN SCALE 7-10 (Severe Cefazolin Sodium 2 gm in 100 mls @ 100 mls/hr 04/13/25 16:53 04/18/25 05:27 Ancef 2gm Ivpb IV 04/20/25 16:52 100 mls/hr Q8HR NAKUL Administration Metronidazole 500 mg in 100 mls @ 200 mls/hr 04/13/25 16:53 04/18/25 11:29 Flagyl 500 Mg Iv IV 04/20/25 16:52 200 mls/hr Q6HR NAKUL Administration Insulin Human Lispro 0 unit 04/13/25 07:30 04/18/25 11:40 Insulin Lispro (Admelog) 1 Unit/0.01 Ml Unit SC 05/13/25 07:29 Not Given ACHS NAKUL Protocol Losartan Potassium 50 mg 04/16/25 09:00 04/18/25 08:30 Losartan Potassium 25 Mg Tablet PO 05/16/25 08:59 50 mg QDAY NAKUL Administration Metoprolol Tartrate 1 mg 04/13/25 15:44 Metoprolol Tartrate Inj 1 Mg/Ml Vial 5 Ml IVP Q5MIN PRN TACHYCARDIA Ondansetron HCl 4 mg 04/13/25 01:44 04/17/25 20:47 Ondansetron Inj 2 Mg/Ml Inj 2 Ml IVP 05/13/25 01:43 4 mg Q6HR PRN Administration NAUSEA OR VOMITING Protocol Pantoprazole Sodium 40 mg 04/13/25 09:00 04/18/25 08:30 Pantoprazole Inj 40 Mg Vial IVP 05/13/25 08:59 40 mg QDAY NAKUL Administration Simethicone 80 mg 04/15/25 08:20 04/18/25 11:29 Simethicone 80 Mg Chew PO 05/15/25 08:19 80 mg QID PRN Administration GAS Plan Ms. Spencer is a 69-year-old female with a history of hypertension, type II diabetes mellitus, and anxiety who presented to the emergency department with acute on subacute post prandial ruq pain associated with nausea and vomiting and found to have gallstones on US outpatient, likely billiary colic. pt admitted for infectious work up, on lap mike was found to have purulent liquid around liver, abdomen was washed out, and gb removed, continues on iv abx. #Symptomatic cholelithiasis s/p Laproscopic Cholecystectomy and Abdominal washout POD 5 #Biliary Colic #Small Bowel Ileus #Adenocarcinoma ( OCCUPANCY SPECIALIST or GI?) Acute on subchronic presentation of RUQ post prandial pain, patient reports having taken NSAIDS regularly for chronic back pain CT Abdo pelvis showed cholelithiasis, liver mildly irregular in contour, no common bile duct or common hepatic duct stone, no bowel obstruction Gallbladder ultrasound showed cholelithiasis, negative for cholecystitis WBC 12.8, improving. Afebrile. lipase wnl, no CVA tenderness, 04/13: Diagnostic laparoscopy and removal of omental inflammatory nodules and irrigation of the peritoneal cavity followed by laparoscopic cholecystectomy. Other findings include puralent material in the RUQ, no ruptured appendix was visualized. 04/17: Abdominal/pelvic CT was performed, revealing cirrhosis, anasarca, mild ascites, severe osteopenia, and advanced disc narrowing at L4-L5 with grade 1 anterolisthesis. Plan ? General Surgery consulted- advanced to regular diet, -reportedly will be scheduled for colonoscopy soon once surgical wounds heal. ? Pain regimen: [place] 10-325 q6h prn (home med is 7.5) and Morphine 2mg IV q4hr prn ? Cefazolin 2 gm q8hr (04/12- ? Metronidazole 500 q6hr (04/13- ? Samples were obtained of the inflammatory nodules, pathology report revealed mucinous adenocarcinoma. -Oncology consulted-recommendation: - Review of pathology, staging completion, and patient will be referred to medical oncologist Dr. Arellano. - Ordered common tumor markers CEA CA 19?9 CA125 CA 15-3 - Gave patient information regarding referral to the cancer treatment center. ? Will continue antibiotics and encourage ambulation, monitor for flatus - Started patient on senna and MiraLAX - Started Lovenox 40 mg subcu once daily for DVT prophylaxis #CT findings of cirrhosis #Malignant ascites Differential cirrhosis, anasarca and mild ascites. The ascites likely secondary to malignancy Liver irregular in contour with diffuse fatty infiltration no focal liver. Cr anf GFR wnl.T.reyna normal ? No acute intervention at this moment continue, continue to monitor - Follow-up outpatient with oncologist for the adenocarcinoma #Acute normocytic anemia hgb on admission 13, and on prior labs has been wnl, during current admission hgb 10.9, pt states that she had some blood tinged emesis but no erich blood by mouth she does have cirrhosis, possibly 2/2 NAFLD Hgb stable Plan ? Daily CBC ? Transfuse if <7 #Zrf-ffttwnt-plpkznpol type 2 diabetes mellitus Last A1c 6.4 Takes metformin 1 g daily Plan: ? Insulin sliding scale ? Hypoglycemia protocol in place #Peripheral Neuropathy ? Gabapentin 300 mg TID # Primary hypertension ? Continue home losartan 50mg po qd #Chronic Back pain ? Takes norco at home 1 tab q8hr - Hydromorphone 0.5 mg IVP Q4HR as needed #Hyperlipidemia ? Atorvastatin 40 mg qd #Hypophosphatemia ? Repleted as indicated #Hypokalemia, resolved Likely in the setting of GI loss K 3.4 - repleted wth 40 meq KCL PO Plan ? Daily CMP Health Maintenance: Diet: Advance as tolerated GI prophylaxis: Protonix 40 mg daily DVT prophylaxis: Lovenox 40mg Antibiotics: cefazolin and flagyl CODE STATUS: Full Disposition: MedSur, POD 5 from laparoscopic cholecystectomy. Encouraging ambulation. Patient seen and assessed under supervision of attending physician Dr. Sullivan and discuss with senior resident Dr. Balta Matt PGY-2 Kathleen Multani MD PGY-1, Internal Medicine Attending Provider Attestation/Addendum I, Aidee Restrepo DO, attest that I was physically present for the valles portions of the service and evaluated the patient with the resident and I reviewed and discussed the case with the resident and agree with the resident's findings and plans of care as documented above Patient seen and evaluated this AM. Daughter at bedside. Patient is tearful and in some distress as surgeon had revealed to patient the pathology results of omental lymph node are consistent with adenocarcinoma. Patient states she has not had a bowel movement and has some abdominal pain. She was able to tolerate diet this morning however. Oncology consulted. Patient can likely be discharged within next 24h. Case discussed at length with surgeon.
[2025-04-18 13:18] LABS: Albumin/Globulin Ratio 1.8 (1.2-2.2); Globulin 2.0 gm/dL (2.3-3.5); Total Protein 5.6 gm/dL (5.7-8.2)
[2025-04-18 14:05] LABS: CA 125 175.0 U/mL (<30.2); Carcinoembryonic Antigen 52.6 ng/mL (0.0-5.0)
--- NOTE | 2025-04-18 15:33 | PC.NURSE ---
While covering for primary nurse Andreia, responded to alarming IV pump. Pt appeared visibly upset. Upon inquiry, pt and daughter expressed frustrations about how long they have been here. They said it's been unclear as to what specifically is holding up her discharge. Noted Dr Ware had conducted consultation, placed note and ordered labs that had been drawn. Dr Multani called for clarification and notified of Dr Ware's consult note. Per Dr Multani, she will reach out to make sure nothing further is needed for discharge from Dr Ware and her Senior. Informed that patient really wants to go home today.
--- NOTE | 2025-04-18 15:55 | ESDS_ITS ---
<Statement entered by Aidee Restrepo DO - 04/19/25 07:26> I, Aidee Restrepo DO, attest that I was physically present for the valles portions of the service and evaluated the patient with the resident and I reviewed and discussed the case with the resident and agree with the resident's findings and plans of care as documented above <Statement entered by Carl Matt MD - 04/18/25 16:52> Note reviewed and agree with care plan as documented. Please refer to the note below for further details. Plan discussed with attending physician Dr. Kaye Matt MD PGY-2 Internal Medicine Planned Discharge Date 04/18/25 DS: Providers Provider Date of admission: 04/13/25 00:24 Primary care physician: Rosa Ku PA-C Admitting Provider: Rneate Gomez MD Attending Provider on Admission: Aidee Restrepo DO Consults: 04/12/25 21:30 Consult to General Surgery Stat Comment: Consulting Provider: Vance Ball 04/18/25 11:27 Consult to Oncology Stat Comment: Consulting Provider: Ayden Ware Attending Provider on DC: Renate Gomez MD, Discharging Provider: Aidee Restrepo DO Anticipated date of discharge: 04/18/25 DS: Diagnosis Problem List Completed Was Problem List Reviewed/Reconciled?: Yes Hospital Course Hospital Course Hospital course: Summary Ms. Spencer is a 69-year-old female with a history of hypertension, type II diabetes mellitus, and anxiety who presented to the emergency department on 04/13/2025 with acute on subacute post prandial right upper quadrant pain associated with nausea and vomiting and found to have gallstones on US outpatient.Patient admitted for cholelithiasis evaluation and management. Diagnostic laparoscopy and removal of omental inflammatory nodules and irrigation of the peritoneal cavity followed by laparoscopic cholecystectomy done on 04/13/2025. Omental inflammatory nodules biopsy was done and sent for pathology. During office stay patient reports abdominal pain and constipation, for which she was pain control and bowel regimen was given. Patient is able to have 1 bowel movement yesterday morning. After the pathology result was read this morning patient was determined to go home. Pathology result was positive for adenocarcinoma, however unable to assess if it was primary gynecological or GI related. Radiation oncologist Dr. Ware was consulted and ordered tumor markers will referer to medical Dr. Arellano for further evaluation and management. CTPA did show ascites which likely to be malignant due to adenocarcinoma. Patient is aware aware about the pathology lymph node findings, will follow-up with oncology Dr. Noble for further staging and further medical management. Nonetheless from a surgery standpoint patient is ready to be discharged with antibiotics. The patient was prescribed Mounjaro as a home medication in February but discontinued it due to worsening gastrointestinal symptoms, including severe bloating and abdominal pain. Advised that the patient avoid taking it in the future.Instructed patient to seek urgent medical care (ED or immediate clinic visit) if she develops severe or persistent abdominal pain, vomiting, inability to pass gas or stool, fever, or worsening bloating, as these may indicate a serious complication. Further plan to discharge the patient home with antibiotics course since she is hemodynamically stable to be discharged home to self care with the following instructions. Discharge recommendation: - Take Ciprofloxacin 500mg twice daily and flagyl 500mg twice daily for 6 days ? Continue taking all other home medications as prescribed ? Follow-up with Primary doctor within 1-2 weeks of discharge ? If you do not have a Primary doctor, you can follow-up at the [facility] (you can call [phone] to make an appointment) ? Return to ED if symptoms worsen like significantly worsen abdominal pain, fever, chills, nausea, vomiting, blood in the stool Hospital Diagnoses: #Symptomatic cholelithiasis s/p Laproscopic Cholecystectomy and Abdominal washout POD 5 #Biliary Colic #Small Bowel Ileus #Adenocarcinoma ( TOOL MARKER or GI?) #CT findings of cirrhosis #Malignant ascites #Acute normocytic anemia #Mkh-ryvjdur-cbarzplba type 2 diabetes mellitus #Peripheral Neuropathy # Primary hypertension #Chronic Back pain #Hyperlipidemia #Hypophosphatemia #Hypokalemia, resolved Patient seen and assessed under supervision of attending physician Dr. Restrepo and discuss with senior resident Dr. Balta Matt PGY-2 Kathleen Multani MD PGY-1, Internal Medicine Please note: this document was transcribed using voice recognition technology; minor inaccuracies may be present. Time Spent with Patient Time attestation: Total time spent providing and/or coordinating discharge services: Time spent: Greater than 30 minutes Exam Vital Signs Temp Pulse Resp BP Pulse Ox O2 Del Method O2 Flow Rate 97.0 F 90 22 H 144/87 H 93 L Room Air 2 04/18/25 12:00 04/18/25 12:00 04/18/25 12:00 04/18/25 12:00 04/18/25 12:00 04/18/25 12:04/15/25 11:31 Narrative Exam General: Alert, no acute distress. Sad affect after hearing about the pathology result. Skin: Warm, dry, intact. No rash or ecchymoses. Head: Normocephalic, atraumatic. Eye: Normal conjunctiva, PERRL. Throat: Oral mucosa moist. No obvious lesions in oropharynx. Cardiovascular: Regular rate and rhythm, no murmur, +S1/S2. Respiratory: Lungs are clear to auscultation, respirations unlabored, no crackles, no wheezing. Gastrointestinal: Soft, nontender, non-distended. No guarding or rebound tenderness. Extremities: No edema, no cyanosis, no clubbing. Neuro: Alert and oriented x3.No focal deficits observed. Conversant, moving all extremities. No overt cerebellar signs/incoordination. Psychiatric: Cooperative, sad affect Discharge Plan Plan Patient Disposition: HOME (Self Care) Patient condition on transfer: Stable Care Plan Goals: - Take Ciprofloxacin 500mg twice daily and flagyl 500mg twice daily for 6 days ? Continue taking all other home medications as prescribed ? Follow-up with Primary doctor within 1-2 weeks of discharge ? If you do not have a Primary doctor, you can follow-up at the [facility] (you can call [phone] to make an appointment) ? Return to ED if symptoms worsen like significantly worsen abdominal pain, fever, chills, nausea, vomiting, blood in the stool Prescriptions/Referrals Prescriptions/Med Rec: New ciprofloxacin HCl 500 mg tablet 500 mg PO BID 6 Days Qty: 12 0RF metronidazole 500 mg tablet 500 mg PO Q8H 6 Days Qty: 18 0RF Continued metformin 500 mg Tablet 1,000 mg PO QDAY hydrocodone-acetaminophen 7.5-325 mg Tablet 1 tab PO Q8H PRN (Reason: Pain) atorvastatin 40 mg Tablet 40 mg PO QDAY hydrochlorothiazide 25 mg Tablet 25 mg PO QDAY atenolol [Tenormin] 50 mg Tablet 50 mg PO QDAY gabapentin 300 mg capsule 300 mg PO TID famotidine 20 mg tablet 20 mg PO QDAY omeprazole 20 mg capsule,delayed release(DR/EC) 20 mg PO QDAY losartan 50 mg tablet 50 mg PO QDAY Referrals: Rosa Ku PA-C [Primary Care Provider, Family Practice] Patient/Caregiver Discharge Instructions Education Materials: Preventing Surgical Site Infections Print Language: Serbian Activity Restrictions/Additional Instructions: Please give appointment to my office on Thursday, April 26 for a follow-up. My office is [address] [place] [address] 8. Please call [phone] for an appointment time Stand Alone Forms: Rosalba Award Info., Patient Portal Info Letter Discharge Order Discharge Orders: Discharge (Routine); Ordered 04/18/25 Ordered By: Kathleen Multani Quality Discharge Quality Measures VTE prophylaxis
[2025-04-18 16:00] VITALS: BP 140/69; PULSE 89; RESP 22; TEMP 36.1; O2SAT 94
[2025-04-25 07:41] LABS: CA 19-9 Antigen* 209 U/mL (<34); CA 27.29* 37 U/mL (LESS THAN 38)
== END 2025-04-18 16:30 | disposition home or self-care (01) | DRG 418 ==
LOC: SERX 21:47 → SERHOLD 04-13 01:20 → S3NX 04-13 01:39
PROVIDERS: Physician Assistant; Radiology Therapeutic Radiology; Surgery; Admitting Provider Student in an Organized Health Care Education/Training Program; Emergency Provider Emergency Medicine; PCP Physician Assistant; Visit Provider Internal Medicine
PROC: 0FT44ZZ Resection of Gallbladder, Percutaneous Endoscopic Approach (ICD-10-PCS; CPT 47562; principal; 2025-04-13 12:45)
DX: K80.00 Calculus of gallbladder with acute cholecystitis without obstruction (principal); K56.7 Ileus, unspecified; R18.0 Malignant ascites; K82.A2 Perforation of gallbladder in cholecystitis; I10 Essential (primary) hypertension; F41.9 Anxiety disorder, unspecified; K21.9 Gastro-esophageal reflux disease without esophagitis; F17.200 Nicotine dependence, unspecified, uncomplicated; E11.40 Type 2 diabetes mellitus with diabetic neuropathy, unspecified; Z79.84 Long term (current) use of oral hypoglycemic drugs; K74.60 Unspecified cirrhosis of liver; E66.9 Obesity, unspecified; Z68.35 Body mass index [BMI] 35.0-35.9, adult; K30 Functional dyspepsia; D64.9 Anemia, unspecified; G89.29 Other chronic pain; M54.50 Low back pain, unspecified; E78.5 Hyperlipidemia, unspecified; E83.39 Other disorders of phosphorus metabolism; E87.6 Hypokalemia; Z79.899 Other long term (current) drug therapy; Z90.710 Acquired absence of both cervix and uterus; Z96.659 Presence of unspecified artificial knee joint; M43.10 Spondylolisthesis, site unspecified; Z88.8 Allergy status to other drugs, medicaments and biological substances
CPT/HCPCS: 36415; 74019; 74177; 76705; 80053; 81001; 82248; 82378; 83036; 83690; 83735; 84100; 85025; 85610; 85730; 86300; 86301; 86304; 87040; 96361; 96365; 96375; 96376; 99284; A4217; A4649; J0131; J0689; J1100; J1171; J2270; J2371; J2405; J2470; J2704; J2765; J3010; J3475; J3480; J3490; J7030; J7120; Q9967; A9270; J1805; J1836

== ENCOUNTER 2025-04-27 10:20 | Outpatient (RCR) | payer OTHER, MEDICAID, SELFPAY ==
--- NOTE | 2025-04-25 13:43 | CTCFLWUP_ITS ---
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 Patient is a 69-year-old lady who was 2 weeks ago for abdominal pain and CT scan and ultrasound abdomen revealing cholelithiasis. Please see consult of 04/18/2025. Presence of cirrhosis mild ascites with no abdominal masses suggestive of malignancy noted. No pancreatic mass absent uterus. Underwent diagnostic laparoscopy for symptomatic cholelithiasis, with inflammatory purulent material noted which were removed along with adjacent nodules and irrigation of peritoneal cavity followed by laparoscopic cholecystectomy performed by Dr. Parham 04/13/2024. Final pathology revealed gallbladder contents chronic cholecystitis with cholelithiasis. 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 Labs revealed elevated alk phos at 173 otherwise LFTs not elevated. Tumor markers CEA (53) CA 19?9 (209) CA125 (175) were all moderately elevated. CA 27?2 9 normal (37) Patient now out of the hospital still having moderate abdominal pain and bloating symptoms. Patient will see Dr. Parham tomorrow who will do more diagnostic studies including colonoscopy according to patient. A#1. Metastatic mucinous adenocarcinoma, omental nodules noted during laparoscopy and cholecystectomy. No abdominal masses seen on CT suggestive of primary site. A#2. Moderately elevated tumor markers of CEA CA125 CA 19?9. A#3. Patient will be seeing Dr. Parham tomorrow and colonoscopy reportedly being scheduled. A#4. Shall order PET scan A#5. Oxycodone 5 mg every 6. [place] reportedly not helping patient enough. Cures website checked. I will see patient again in 1 month for pain management. A#6. Dr. Adan antonio onc scheduled see patient next week. Cc: Rosa Ku PA-C [facility] Prasad Ball MD Electronically signed by: Ayden Ware M.D. 04/25/2025 1:41 PM
--- NOTE | 2025-05-21 14:09 | CTCFLWUP_ITS ---
Patient: JUAN R MATT : 1955 Page 2 of 2 FOLLOW UP NOTE DATE OF SERVICE: 04/27/2025 NAME: JUAN R MATT ACCOUNT: [id number] : 1955 AGE: 69 INTERVAL HISTORY: ONCOLOGY HISTORY: DIAGNOSIS: Secondary and unspecified malignant neoplasm of intra-abdominal lymph nodes [ICD10] C77.2 DATE OF DIAGNOSIS: STAGE/TNM: TREATMENT HISTORY: Care?Plan Start?Date Cycle Day Intent HISTORY OF PRESENT ILLNESS: OTHER MEDICAL HISTORY/CONDITIONS: METASTATIC MUCINOUS ADENOCARCINOMA - DX 04/13/25 DIABETES HTN HYPERLIPIDEMIA LAPROSCOPIC REMOVAL OF OMENTAL INFLAMMATORY NODES; IRRIGATION OF PERITONEAL CAVITY AND LAPROSCOPIC CHOLECYSTECTOMY - 04/13/25 HYSTRECTOMY TOTAL RIGHT KNEE REPLACMENT ROTATOR CUFF BILAT RIGHT CARPAL TUNNEL FAMILY HISTORY: Mother: STOMACH; BREAST -DX 60'S - Sibling: SISTER LYMPHOMA -DX 50'S - Children: [id number] 60'S-; SISTER-UNKNOWN CA-DX40'S SOCIAL HISTORY: Occupational?History:?RETIRED- Education?Level:?Completed High School Marital?Status:? 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 atenolol - 50 mg Daily 2. Ativan - 1 mg 1 tab three times a day 3. Cozaar - 50 mg Daily 4. gabapentin - 300 mg Three times a day 5. hydrochlorothiazide - 26 mg Daily 6. Lipitor - 40 mg Daily 7. metformin - 1,000 mg Daily 8. morphine - 30 mg 1 tab twice a day 9. omeprazole - 20 mg Daily 10. oxycodone - 5 mg 1 tab q6 11. Pepcid - 20 mg 1 tab Daily 12. simethicone - 125 mg 1 tab As directed Medications Last Reconciled by Leonila Shah RN on 04/27/2025 ALLERGIES: lisinopril REVIEW OF SYSTEMS: A complete 14-point review of systems was performed and is negative except as noted in interval history. PHYSICAL EXAMINATION: VITAL SIGNS: B/P?146/83, Height?60?inches, Oxygen?Saturation?97% Weight?176?lbs (Change?since?04/25/25:?1?lbs) PAIN: 0 - No pain ECOG Performance Status: 1 - Symptomatic; ambulatory; restricted in strenuous activity GENERAL APPEARANCE: Appears well, in no apparent distress, appropriately interactive. HEENT: Normocephalic, no temporal wasting, normal conjunctiva, no scleral icterus, normal hearing, lips without lesions, neck normal range of motion. CARDIOVASCULAR: Not assessed. PULMONARY: Normal respiratory effort, no respiratory distress or use of accessory muscles, speaking in full sentences, no tachypnea. EXTREMITIES: No pedal edema or cyanosis. SKIN: Normal skin appearance. NEUROLOGIC: Alert and oriented x4. PSHYCHIATRIC: Appropriate affect, mood normal, behavior normal, intact thought and speech. LABORATORY DATA: I have personally reviewed and interpreted each of the patient?s relevant lab tests, abnormal findings are below: Date 04/18/25 ??CA?19-9?(Unit/mL) 209.00?A ASSESSMENT/PLAN: Adenocarcinoma of unknown entity Patient had cholecystectomy done and found to have peritoneal nodules which were biopsied and found to be adenocarcinoma but IHC did not reveal region of cells PET CT scan obtained which shows multiple lesions in the liver andcolon Ordered biopsy of colon lesion by colonoscopy will send interventional radiology biopsy of the liver lesions Also will do cancer type IP Patient's tumor markers reviewed and is elevated with the CA 19-9 CEA and CA 15- 3 thus not helping us to confirm the diagnosis Will need to wait for anoscopy results as well as biopsy of the liver to decide on treatment plan ORDERS: Order # Description [id number] Follow Up 4 Week [id number] Initial PET/CT of Skull to Mid-Thigh [id number] Iron Panel + Ferritin + Vitamin B-12 + Folic Acid; Serum [id number] CEA + CA 19-9 + AFP + CA 15-3 + CA [id number] Scan + Chest + Abdomen and Pelvis + With W/O Contrast [id number] Cancer TYPE ID test [id number] Colonoscopy + Endoscopy [id number] Port Placement RETURN TO CLINIC: I reviewed the diagnosis, prognosis, and recommended treatment/procedure options with the patient (and/or their legal provider service representative), including the potential benefits, risks, side effects and alternative therapies. We also discussed the option of no treatment and the possibility of clinical trial participation, if applicable. All questions were addressed, and they demonstrated understanding. They provided informed consent to proceed with the proposed plan of care. BILLING AND COMPLIANCE: I reviewed external records from providers outside my specialty as summarized above. I spent a total of 50 minutes on this patient?s care on the day of their visit excluding time spent related to any billed procedures. This time includes time spent with the patient as well as time spent documenting in the medical record, reviewing patients records and tests, obtaining history, placing orders, communicating with other healthcare professionals, counseling the patient, family or caregiver, and/or care coordination for the diagnoses above. Electronically Signed by: Ziggy Arellano MD T: 2:06 PM CC: PCP: Rosa Ku Referring: Rosa Ku This document was completed utilizing speech recognition software. Grammatical errors, random word insertions, pronoun errors, and incomplete sentences are an occasional consequence of this system due to software limitations, ambient noise, and hardware issues. Any formal questions or concerns about the content, text or information contained within the body of this dictation should be directly addressed to the provider for clarification.
== END 2025-05-17 23:59 | disposition home or self-care (01) ==
LOC: SCTC 10:20
PROVIDERS: PCP Physician Assistant; Referring Provider Physician Assistant; Visit Provider Internal Medicine Hematology & Oncology
DX: C78.6 Secondary malignant neoplasm of retroperitoneum and peritoneum (principal); K76.89 Other specified diseases of liver; K63.89 Other specified diseases of intestine; Z90.49 Acquired absence of other specified parts of digestive tract
CPT/HCPCS: 99213; G0463

== ENCOUNTER → 2025-05-02 | Outpatient (CLI) | payer OTHER, MEDICAID, SELFPAY ==
--- NOTE | 2025-05-02 13:15 | XR_ITS ---
EXAMINATION: PET/CT FUSION SKULL TO THIGH EXAM DATE AND TIME: May 02, 2025, 1354 hours, comparison CT abdomen/pelvis April 17, 2025 INDICATIONS: Diagnosis lymphoma, staging, diagnosis cirrhosis CTDI:vol (mGy) 7.46 DLP: (mGycm) 588.91 PROCEDURE: 16.3 mCi FDG was administered intravenously To allow for distribution and uptake of radiotracer, the patient was allowed to rest quietly in a shielded room. Imaging was performed on an integrated 16-slice PET/CT scanner, with scanning from the skull base to the mid thigh. Serum blood glucose at the time of the injection was measured 114 mg/dL. CT scanning was performed without oral or intravenous contrast material. FINDINGS: Head and Neck: There is no yovany hypermetabolism in the neck. The visualized portions of the brain are normal in appearance on CT. Chest: 10 mm non-hypermetabolic nodule right middle lobe . Abdomen and Pelvis: 20 mm exophytic hypermetabolic posterior right lobe liver lesion,. 25 mm hypermetabolic lesion in the right colon image 150 Musculoskeletal: Hypermetabolic 25 mm lesion right sacral wing first segment Hypermetabolic lesion L3, 15 mm IMPRESSION: 10 mm non-hypermetabolic nodule right middle lobe 20 mm exophytic hypermetabolic lesion posterior right lobe of the liver 25 mm hypermetabolic lesion in the right colon,. 25 mm hypermetabolic right sacral wing lesion 15 mm hypermetabolic lesion L3 Recommend MRI abdomen liver follow-up pre and postcontrast Recommend colonoscopy follow-up Recommend nuclear medicine whole body bone scan follow-up
== END | disposition home or self-care (01) ==
PROVIDERS: PCP Physician Assistant; Referring Provider Radiology Therapeutic Radiology; Visit Provider Radiology Therapeutic Radiology
DX: K76.9 Liver disease, unspecified (principal); G95.89 Other specified diseases of spinal cord; K63.9 Disease of intestine, unspecified; C77.2 Secondary and unspecified malignant neoplasm of intra-abdominal lymph nodes
CPT/HCPCS: 78815; A9552

== ENCOUNTER → 2025-05-08 | Outpatient (CLI) | payer OTHER, MEDICAID, SELFPAY ==
--- NOTE | 2025-05-08 11:00 | XR_ITS ---
Examination: CT chest with intravenous contrast CT abdomen with intravenous contrast CT pelvis with intravenous contrast CT chest without intravenous contrast CT abdomen without intravenous contrast CT pelvis without intravenous contrast 2-D coronal and sagittal reconstructions Time of exam: May 08, 2025, 1147 hours, comparison PET/CT scan May 02, 2025, CT abdomen April 17, 2025, April 12, 2025 INDICATION: Diagnosis cirrhosis, diagnosis lymphoma CTDI: vol (mGy) : 19.1 DLP: (mGycm): 1233 Technique: Multiple axial images of the chest, abdomen and pelvis with intravenous contrast, 3.0 mm slice thickness. Images obtained post intravenous injection Isovue 370 60 cc. 2-D sagittal and coronal reconstructions. Low dose protocols were performed. One or more of the following dose reduction techniques were used; automated exposure control, adjustment of the mA and/or KV according to patient size, use of iterative reconstruction technique. Findings: 6 mm right thyroid nodule, 10 mm right thyroid nodule 6 mm left thyroid nodule No thoracic aortic aneurysmal dilatation Pulmonary artery opacification is reduced Heavy calcification left anterior descending coronary artery No mediastinal lymphadenopathy 10 mm nodule right middle lobe spiculated margins 20 mm exophytic posterior right lobe liver lesion Contracted urinary bladder Mass in the right colon, 40 mm, corresponding to the hypermetabolic mass on the PET/CT scan with numerous pericolonic lymph nodes Diffuse nodular densities ranging in size from 2 mm to 12 mm throughout the peritoneum Mild ascites No hydronephrosis No bowel obstruction Colonic diverticulosis No definite sacral osteolytic lesion at the area of hypermetabolic activity in the sacrum on the PET scan IMPRESSION: Bilateral thyroid nodules 10 mm right middle lobe pulmonary nodule spiculated margins 20 mm exophytic posterior right lobe liver lesion corresponding to the hypermetabolic lesion on the PET/CT scan May 02, 2025 40 mm mass in the right colon corresponding to the hypermetabolic mass on the PET CT scan, recommend colonoscopy follow-up Numerous right pericolonic lymph nodes Diffuse nodular densities throughout the peritoneum consistent with peritoneal carcinomatosis
== END | disposition home or self-care (01) ==
LOC: SCAT 10:32
PROVIDERS: PCP Physician Assistant; Referring Provider Internal Medicine Hematology & Oncology; Visit Provider Internal Medicine Hematology & Oncology
DX: E04.2 Nontoxic multinodular goiter (principal); K76.89 Other specified diseases of liver; K63.89 Other specified diseases of intestine; K66.8 Other specified disorders of peritoneum; C77.2 Secondary and unspecified malignant neoplasm of intra-abdominal lymph nodes
CPT/HCPCS: 71270; 74178; A4649; Q9967